=== PATIENT | male | born 1955 | race Caucasian/White ===

== ENCOUNTER → 2016-06-30 | Outpatient (CLI) | payer MEDICARE, OTHER ==
--- NOTE | 2016-06-30 13:54 | XR ---
EXAMINATION TYPE: XR chest 2V DATE OF EXAM: 06/30/2016 1:19 PM COMPARISON: Prior chest x-ray 12 August 2015 HISTORY: Pneumonia, abnormal physical exam, cough TECHNIQUE: Frontal and lateral views of the chest are obtained. FINDINGS: There is no focal air space opacity, pleural effusion, or pneumothorax seen. The cardiac silhouette size is within normal limits. There is a spinal curvature. There are prominent lung volum es. Minimal patchy density present at the left lung base. The osseous structures are intact. IMPRESSION: There may be some basilar atelectasis or scar. Follow-up as indicated. Chest CT may be o f benefit. Possible underlying COPD.
== END | disposition home or self-care (01) ==
LOC: RADXRMAIN 12:48
PROVIDERS: ATTEND Family Medicine
DX: J18.9 Pneumonia, unspecified organism (principal)
CPT/HCPCS: 71020

== ENCOUNTER → 2018-05-27 | Outpatient (CLI) | payer MEDICARE, OTHER ==
--- NOTE | 2018-05-27 11:13 | XR ---
EXAMINATION TYPE: XR chest 2V DATE OF EXAM: 05/27/2018 COMPARISON: Prior chest x-ray 06/30/[address] 07/08/2014 HISTORY: Dyspnea, abnormal chest x-ray TECHNIQUE: Frontal and lateral views of the chest are obtained. FINDINGS: Findings similar to prior exam. No pneumothorax or pleural effusion. Cardiomediastinal ruiz houette, pulmonary vascularity and timmy are stable. Prominent lung volumes compatible with underlying COPD, emphysema. The aorta is dense and tortuous. Question some minimal patchy basilar density, poss ible bronchiectatic changes. IMPRESSION: No significant interval change. Emphysema, possible mild bronchiectasis. There may be so me basilar scarring or atelectasis.
== END | disposition home or self-care (01) ==
LOC: RADXRMAIN 09:44
PROVIDERS: ATTEND Family Medicine
DX: J43.9 Emphysema, unspecified (principal)
CPT/HCPCS: 71046

== ENCOUNTER 2018-09-23 20:19 | Emergency (ER) | payer MEDICARE, OTHER ==
[2018-09-23] MEDS ORDERED: SODIUM CHLORIDE 0.9% 1,000 ML IV ONE (20:45)
[2018-09-23] MEDS ORDERED: SODIUM CHLORIDE 0.9% 500 ML 500 ML IV ONE (20:45)
--- NOTE | 2018-09-23 21:43 | ED ---
Altered Mental Status HPI - General Chief Complaint: Altered Mental Status Stated Complaint: Altered mental status Time Seen by Provider: 09/23/18 20:45 Source: family, EMS, RN notes reviewed, old records reviewed Mode of arrival: EMS Limitations: altered mental status - History of Present Illness Initial Comments: This is a 62-year-old male the ER for evaluation. Patient coming in for evaluation of altered mental status decreased responsiveness increasing anxiety. No recent travel history no sick contacts. No fevers cough or congestion or recent travel history no no pain. No recent change in medications. No drugs or alcohol abuse. Patient very emotional difficult historian secondary to inability to answer questions MD Complaint: altered mental status, confusion -: days(s) Severity: mild Consistency of Symptoms: waxing and waning Context: history of similar presentation Associated Symptoms: denies other symptoms - Related Data Home Medications Medication Instructions Recorded Confirmed Aspirin 81 mg PO DAILY 12/03/13 10/02/15 Clopidogrel [Plavix] 75 mg PO DAILY 12/03/13 10/02/15 Tamsulosin HCl [Flomax] 0.4 mg PO DAILY 12/04/13 10/02/15 Desvenlafaxine Succinate [Pristiq 100 mg PO DAILY 07/08/14 10/02/15 ER] ALPRAZolam [Xanax] 1 mg PO Q8H 08/31/14 10/02/15 Cyclobenzaprine [Flexeril] 10 mg PO HS PRN 04/13/15 10/02/15 Multivitamins, Thera [Multivitamin 1 tab PO DAILY 04/13/15 10/02/15 (formulary)] Budesonide/Formoterol Fumarate 2 puff INHALATION RT-BID 08/12/15 10/02/15 [Symbicort 160-4.5 Mcg Inhaler] Hydrocodone/Acetaminophen [[place] 1 tab PO Q6H PRN 08/12/15 10/02/15 7.5-325] carBAMazepine [TEGretol] 200 mg PO Q12H 09/22/15 10/02/15 Previous Rx's Medication Instructions Recorded Atorvastatin [Lipitor] 80 mg PO HS tab 07/10/14 Ipratropium-Albuterol Nebulize 3 ml INHALATION RT-QID #120 07/15/14 [Duoneb 0.5 mg-3 mg/3 ml Soln] ampul.neb Hydrocodone/Acetaminophen [[place] 1 each PO Q4HR PRN #15 tab 10/02/15 5-325] Metoclopramide HCl [Reglan] 10 mg PO Q6HR PRN #15 tablet 10/02/15 Allergies Allergy/AdvReac Type Severity Reaction Status Date / Time fentanyl AdvReac Vomiting Verified 09/23/18 20:34 Review of Systems ROS Statement: Those systems with pertinent positive or pertinent negative responses have been documented in the HPI. ROS Other: All systems not noted in ROS Statement are negative. Past Medical History Past Medical History: Asthma, Heart Failure, COPD, CVA/TIA, Hearing Disorder / Deafness, Hyperlipidemia, Hypertension, Seizure Disorder Additional Past Medical History / Comment(s): left side weakness since stroke in 2009, chronic sinusitis, sleep apnea, back pain History of Any Multi-Drug Resistant Organisms: None Reported Past Surgical History: Orthopedic Surgery Additional Past Surgical History / Comment(s): left ankle reconstruction, abd sx to remove fatty tumor Past Anesthesia/Blood Transfusion Reactions: No Reported Reaction Past Psychological History: Anxiety, Depression Smoking Status: Former smoker Past Alcohol Use History: None Reported Past Drug Use History: None Reported - Past Family History Mother Family Medical History: Coronary Artery Disease (CAD), Diabetes Mellitus Father Family Medical History: Congestive Heart Failure (CHF), Diabetes Mellitus Additional Family Medical History / Comment(s): heart cath with stents. brain tumor. General Exam Limitations: altered mental status General appearance: alert, in no apparent distress, anxious Head exam: Present: atraumatic, normocephalic, normal inspection Eye exam: Present: normal appearance, PERRL, EOMI. Absent: scleral icterus, conjunctival injection, periorbital swelling ENT exam: Present: normal exam, mucous membranes moist Neck exam: Present: normal inspection. Absent: tenderness, meningismus, lymphadenopathy Respiratory exam: Present: normal lung sounds bilaterally. Absent: respiratory distress, wheezes, rales, rhonchi, stridor Cardiovascular Exam: Present: regular rate, normal rhythm, normal heart sounds. Absent: systolic murmur, diastolic murmur, rubs, gallop, clicks GI/Abdominal exam: Present: soft, normal bowel sounds. Absent: distended, tenderness, guarding, rebound, rigid Extremities exam: Present: normal inspection, full ROM, normal capillary refill. Absent: tenderness, pedal edema, joint swelling, calf tenderness Back exam: Present: normal inspection Neurological exam: Present: alert, oriented X3, CN II-XII intact Psychiatric exam: Present: normal affect, normal mood Skin exam: Present: warm, dry, intact, normal color. Absent: rash Course Vital Signs 09/23/18 09/23/18 09/23/18 20:34 21:00 21:30 Temperature 98.5 F Pulse Rate 71 Respiratory 22 28 H Rate Blood Pressure 129/72 129/72 110/80 O2 Sat by Pulse 92 L 91 L Oximetry 09/23/18 09/23/18 09/23/18 22:00 22:04 22:14 Temperature Pulse Rate 85 81 82 Respiratory 18 20 Rate Blood Pressure 152/87 O2 Sat by Pulse 93 L Oximetry 09/23/18 09/23/18 09/23/18 22:30 23:00 23:30 Temperature Pulse Rate 85 82 77 Respiratory 16 16 15 Rate Blood Pressure 112/75 114/78 127/80 O2 Sat by Pulse 92 L 95 Oximetry 09/24/18 09/24/18 09/24/18 00:09 00:18 00:38 Temperature 97.4 F L Pulse Rate 76 76 78 Respiratory 16 Rate Blood Pressure 123/84 O2 Sat by Pulse 97 Oximetry Medical Decision Making - Medical Decision Making 62 male the ER for evaluation of significant anxiety, anxiety attack. Patient currently symptoms resolved with anxiolysis. Labwork is otherwise normal and patient can be discharged home - Lab Data Result diagrams: 09/23/18 21:26 09/23/18 22:19 Lab Results 09/23/18 09/23/18 09/23/18 Range/Units 21:26 21:43 21:43 WBC 7.3 (3.8-10.6) k/uL RBC 4.85 (4.30-5.90) m/uL Hgb 14.6 (13.0-17.5) gm/dL Hct 43.6 (39.0-53.0) % MCV 89.9 (80.0-100.0) fL MCH 30.0 (25.0-35.0) pg MCHC 33.4 (31.0-37.0) g/dL RDW 15.4 (11.5-15.5) % Plt Count 110 L (150-450) k/uL Neutrophils % 60 % Lymphocytes % 29 % Monocytes % 7 % Eosinophils % 1 % Basophils % 0 % Neutrophils # 4.4 (1.3-7.7) k/uL Lymphocytes # 2.1 (1.0-4.8) k/uL Monocytes # 0.5 (0-1.0) k/uL Eosinophils # 0.1 (0-0.7) k/uL Basophils # 0.0 (0-0.2) k/uL Hypochromasia Slight Poikilocytosis Slight PT (9.0-12.0) sec INR (<1.2) APTT (22.0-30.0) sec Sodium (137-145) mmol/L Potassium (3.5-5.1) mmol/L Chloride (98-107) mmol/L Carbon Dioxide (22-30) mmol/L Anion Gap mmol/L BUN (9-20) mg/dL Creatinine (0.66-1.25) mg/dL Est GFR (CKD-EPI)AfAm (>60 ml/min/1.73 sqM) Est GFR (CKD-EPI)NonAf (>60 ml/min/1.73 sqM) Glucose (74-99) mg/dL Calcium (8.4-10.2) mg/dL Phosphorus (2.5-4.5) mg/dL Magnesium (1.6-2.3) mg/dL Total Bilirubin (0.2-1.3) mg/dL AST (17-59) U/L ALT (21-72) U/L Alkaline Phosphatase (38-126) U/L Ammonia 17 (<30) umol/L Creatine Kinase (55-170) U/L Troponin I (0.000-0.034) ng/mL Total Protein (6.3-8.2) g/dL Albumin (3.5-5.0) g/dL Urine Color Yellow Urine Appearance Clear (Clear) Urine pH 5.5 (5.0-8.0) Ur Specific [place] 1.023 (1.001-1.035) Urine Protein Negative (Negative) Urine Glucose (UA) Negative (Negative) Urine Ketones Negative (Negative) Urine Blood Negative (Negative) Urine Nitrite Negative (Negative) Urine Bilirubin Negative (Negative) Urine Urobilinogen <2.0 (<2.0) mg/dL Ur Leukocyte Esterase Negative (Negative) Urine Opiates Screen Detected H (NotDetected) Ur Oxycodone Screen Not Detected (NotDetected) Urine Methadone Screen Not Detected (NotDetected) Ur Propoxyphene Screen Not Detected (NotDetected) Ur Barbiturates Screen Not Detected (NotDetected) U Tricyclic Antidepress Detected H (NotDetected) Ur Phencyclidine Scrn Not Detected (NotDetected) Ur Amphetamines Screen Not Detected (NotDetected) U Methamphetamines Scrn Not Detected (NotDetected) U Benzodiazepines Scrn Detected H (NotDetected) Urine Cocaine Screen Not Detected (NotDetected) U Marijuana (THC) Screen Detected H (NotDetected) 09/23/18 09/23/18 09/23/18 Range/Units 22:19 22:: WBC (3.8-10.6) k/uL RBC (4.30-5.90) m/uL Hgb (13.0-17.5) gm/dL Hct (39.0-53.0) % MCV (80.0-100.0) fL MCH (25.0-35.0) pg MCHC (31.0-37.0) g/dL RDW (11.5-15.5) % Plt Count (150-450) k/uL Neutrophils % % Lymphocytes % % Monocytes % % Eosinophils % % Basophils % % Neutrophils # (1.3-7.7) k/uL Lymphocytes # (1.0-4.8) k/uL Monocytes # (0-1.0) k/uL Eosinophils # (0-0.7) k/uL Basophils # (0-0.2) k/uL Hypochromasia Poikilocytosis PT 9.7 (9.0-12.0) sec INR 0.9 (<1.2) APTT 21.5 L (22.0-30.0) sec Sodium 139 (137-145) mmol/L Potassium 5.1 (3.5-5.1) mmol/L Chloride 109 H (98-107) mmol/L Carbon Dioxide 24 (22-30) mmol/L Anion Gap 6 mmol/L BUN 25 H (9-20) mg/dL Creatinine 0.85 (0.66-1.25) mg/dL Est GFR (CKD-EPI)AfAm >90 (>60 ml/min/1.73 sqM) Est GFR (CKD-EPI)NonAf >90 (>60 ml/min/1.73 sqM) Glucose 127 H (74-99) mg/dL Calcium 9.1 (8.4-10.2) mg/dL Phosphorus 4.7 H (2.5-4.5) mg/dL Magnesium 2.5 H (1.6-2.3) mg/dL Total Bilirubin 0.7 (0.2-1.3) mg/dL AST 67 H (17-59) U/L ALT 76 H (21-72) U/L Alkaline Phosphatase 87 (38-126) U/L Ammonia (<30) umol/L Creatine Kinase 122 (55-170) U/L Troponin I <0.012 (0.000-0.034) ng/mL Total Protein 7.2 (6.3-8.2) g/dL Albumin 4.2 (3.5-5.0) g/dL Urine Color Urine Appearance (Clear) Urine pH (5.0-8.0) Ur Specific [place] (1.001-1.035) Urine Protein (Negative) Urine Glucose (UA) (Negative) Urine Ketones (Negative) Urine Blood (Negative) Urine Nitrite (Negative) Urine Bilirubin (Negative) Urine Urobilinogen (<2.0) mg/dL Ur Leukocyte Esterase (Negative) Urine Opiates Screen (NotDetected) Ur Oxycodone Screen (NotDetected) Urine Methadone Screen (NotDetected) Ur Propoxyphene Screen (NotDetected) Ur Barbiturates Screen (NotDetected) U Tricyclic Antidepress (NotDetected) Ur Phencyclidine Scrn (NotDetected) Ur Amphetamines Screen (NotDetected) U Methamphetamines Scrn (NotDetected) U Benzodiazepines Scrn (NotDetected) Urine Cocaine Screen (NotDetected) U Marijuana (THC) Screen (NotDetected) - EKG Data -: EKG Interpreted by Me (EKG shows normal sinus rhythm rate of 87, ME 164, QRS 86, QTC is 435) - Radiology Data Radiology results: report reviewed (CT brain negative for acute disease chest x- rays negative), image reviewed Disposition Clinical Impression: Altered mental status, Anxiety reaction Disposition: HOME SELF-CARE Condition: Good Instructions (If sedation given, give patient instructions): Anxiety (ED) Is patient prescribed a controlled substance at d/c from ED?: No Referrals: Misael Rubalcava DO [Primary Care Provider] - 1-2 days
--- NOTE | 2018-09-23 21:48 | CT ---
EXAMINATION TYPE: CT brain wo con DATE OF EXAM: 09/23/2018 COMPARISON: 10/02/2015 HISTORY: Confusion. weakness CT DLP: 1135.4 mGycm Automated exposure control for dose reduction was used. FINDINGS: There is cerebral cortical atrophy. There is no mass effect nor midline shift. There is no sign of in tracranial hemorrhage. Calvarium is intact. There is mild mucosal thickening in the maxillary sinuses . IMPRESSION: NEGATIVE CT SCAN OF THE BRAIN. NO CHANGE. MILD SINUSITIS.
[2018-09-23 21:54] LABS: Basophils % (A) 0 %; Eosinophils # (A) 0.1 k/uL (0-0.7); Eosinophils % (A) 1 %; HCT 43.6 % (39.0-53.0); HGB 14.6 gm/dL (13.0-17.5); Hypochromasia Slight; Lymphocytes # (A) 2.1 k/uL (1.0-4.8); Lymphocytes % (A) 29 %; MCHC 33.4 g/dL (31.0-37.0); MCV 89.9 fL (80.0-100.0); Mean Platelet Volume 9.8; Monocytes # (A) 0.5 k/uL (0-1.0); Monocytes % (A) 7 %; Neutrophils # (A) 4.4 k/uL (1.3-7.7); Neutrophils % (A) 60 %; Platelet Count 110 k/uL (150-450); Poikilocytosis Slight; RBC 4.85 m/uL (4.30-5.90); RDW 15.4 % (11.5-15.5); WBC 7.3 k/uL (3.8-10.6)
[2018-09-23 21:56] LABS: Appearance,Urine Clear (Clear); Bilirubin,Urine Negative (Negative); Blood,Urine Negative (Negative); Color,Urine Yellow; Glucose,Urine (UA) Negative (Negative); Ketones,Urine Negative (Negative); Leukocyte Esterase,Urine Negative (Negative); Nitrite,Urine Negative (Negative); PH, Urine 5.5 (5.0-8.0); Protein,Urine Negative (Negative); Specific Gravity,Urine 1.023 (1.001-1.035); Urobilinogen,Urine <2.0 mg/dL (<2.0)
[2018-09-23] MEDS ORDERED: IPRATROPIUM-ALBUTEROL 3 ML NEB INHALATION STA (22:02)
[2018-09-23 22:07] LABS: Amphetamine Screen,Urine Not Detected (NotDetected); Barbiturate Screen,Urine Not Detected (NotDetected); Benzodiazepines Screen,Urine Detected (NotDetected); Cocaine Screen,Urine Not Detected (NotDetected); Methadone Screen, Urine Not Detected (NotDetected); Opiate Screen,Urine Detected (NotDetected); Oxycodone Screen, Urine Not Detected (NotDetected); Phencyclidine Screen,Urine Not Detected (NotDetected); Tricyclic Antidepressant,Urine Detected (NotDetected); Urn Cannabinoid Scrn Detected (NotDetected)
[2018-09-23] MEDS ORDERED: DIAZEPAM 5 MG/ML 2 ML INJ IVP STA (22:22)
[2018-09-23 22:40] LABS: African American GFR (CKD) >90 (>60 ml/min/1.73 sqM); Albumin 4.2 g/dL (3.5-5.0); Anion Gap 6 mmol/L; Calcium 9.1 mg/dL (8.4-10.2); Carbon Dioxide 24 mmol/L (22-30); Chloride 109 mmol/L (98-107); Sodium 139 mmol/L (137-145); Total Bilirubin 0.7 mg/dL (0.2-1.3); Total Protein 7.2 g/dL (6.3-8.2)
[2018-09-23 22:41] LABS: Blood Urea Nitrogen 25 mg/dL (9-20); Glucose 127 mg/dL (74-99); Magnesium 2.5 mg/dL (1.6-2.3); Phosphorus 4.7 mg/dL (2.5-4.5); Potassium 5.1 mmol/L (3.5-5.1)
[2018-09-23 22:42] LABS: ALT 76 U/L (21-72); AST 67 U/L (17-59); Alkaline Phosphatase 87 U/L (38-126); Creatine Kinase 122 U/L (55-170)
[2018-09-23 22:58] LABS: INR 0.9 (<1.2); Prothrombin Time 9.7 sec (9.0-12.0)
[2018-09-23 23:01] LABS: Partial Thromboplastin Time 21.5 sec (22.0-30.0)
--- NOTE | 2018-09-23 23:02 | XR ---
EXAM: XR Chest, 2 Views CLINICAL HISTORY: ITS.REASON XR Reason: Pain TECHNIQUE: Frontal and lateral views of the chest. COMPARISON: Chest radiograph on 09/14/2018 FINDINGS: Hardware: None. Lungs/pleura: Low lung volumes. Bibasilar opacities may represent atelectasis versus pneumonia. Pulmonary vasculature congestion versus crowding of bronchovascular markings. Heart/mediastinum: Mild enlargement of the cardiomediastinal silhouette may be accentuated by low lung volumes. Soft tissues: Unremarkable. Bones: No acute fracture. Upper abdomen: Normal. IMPRESSION: Low lung volumes. Bibasilar opacities may represent atelectasis versus pneumonia. Pulmonary vasculature congestion versus crowding of bronchovascular markings.
[2018-09-24] MEDS ORDERED: IPRATROPIUM-ALBUTEROL 3 ML NEB INHALATION STA
[2018-09-24 00:39] VITALS: BP 123/84; PULSE 78; RESP 16; TEMP 97.4
== END 2018-09-24 00:39 | disposition home or self-care (01) ==
LOC: EC 20:19
DX: F41.1 Generalized anxiety disorder (principal); R41.82 Altered mental status, unspecified; J44.9 Chronic obstructive pulmonary disease, unspecified; I11.0 Hypertensive heart disease with heart failure; I50.9 Heart failure, unspecified; G40.909 Epilepsy, unspecified, not intractable, without status epilepticus; H91.90 Unspecified hearing loss, unspecified ear; F32.9 Major depressive disorder, single episode, unspecified; Z87.891 Personal history of nicotine dependence; Z88.5 Allergy status to narcotic agent; Z79.02 Long term (current) use of antithrombotics/antiplatelets; Z79.51 Long term (current) use of inhaled steroids; Z79.82 Long term (current) use of aspirin; Z79.899 Other long term (current) drug therapy; Z86.73 Personal history of transient ischemic attack (TIA), and cerebral infarction without residual deficits
CPT/HCPCS: 36415; 94640 ×2; 93005; 80053; 82140; 82550; 83735; 84100; 84484; 85025; 85610; 85730; 81003; 80306; 71046; 70450; 99285; 96374; 96361; J3360

== ENCOUNTER → 2018-12-26 | Outpatient (CLI) | payer MEDICARE, OTHER ==
--- NOTE | 2018-12-26 12:43 | XR ---
EXAMINATION TYPE: XR chest 2V DATE OF EXAM: 12/26/2018 COMPARISON: 09/23/2018 TECHNIQUE: PA and lateral views submitted. HISTORY: Abnormal x-ray FINDINGS: Subsegmental changes at both lung bases. No evidence of interstitial edema or pneumothorax. No pleura l effusion. Upper atrophic and degenerative change of the spine. IMPRESSION: 1. Basilar atelectasis favored over pneumonia.
== END | disposition home or self-care (01) ==
LOC: RADXRMAIN 10:25
PROVIDERS: ATTEND Family Medicine
DX: J98.11 Atelectasis (principal)
CPT/HCPCS: 71046

== ENCOUNTER 2019-01-25 08:45 | Emergency (ER) | payer MEDICARE, OTHER ==
[2019-01-25 08:49] VITALS: TEMP 98.1
[2019-01-25] MEDS ORDERED: IPRATROPIUM 0.5 MG/2.5 ML NEBU INHALATION STA (09:14)
[2019-01-25] MEDS ORDERED: methylPREDNISolone SOD SUCCI 125 MG/2 ML VIAL IV STA (09:14)
[2019-01-25] MEDS ORDERED: ALBUTEROL NEBULIZED 2.5 MG/3 ML INHALATION STA (09:14)
--- NOTE | 2019-01-25 09:18 | ED ---
General Adult HPI - General Chief complaint: Shortness of Breath Stated complaint: CAROLYN Time Seen by Provider: 01/25/19 08:45 Source: patient, RN notes reviewed Mode of arrival: wheelchair Limitations: no limitations - History of Present Illness Initial comments: This is a 63-year-old male who presents to the emergency department complaining of difficulty breathing. Patient used to be a smoker. Patient states over the last few days he has been much more short of breath and wheezing. Patient states she's also been coughing and coughing up quite a bit of sputum. Patient denies fever or chills. Patient denies any chest pain. Patient denies any p alpitations. Patient denies any abdominal pain patient denies nausea vomiting diarrhea per patient denies headache patient denies numbness weakness. Patient denies any lightheadedness or dizziness. Patient denies leg swelling or calf tenderness - Related Data Home Medications Medication Instructions Recorded Confirmed Aspirin 81 mg PO HS 12/03/13 01/25/19 Clopidogrel [Plavix] 75 mg PO DAILY 12/03/13 01/25/19 Tamsulosin HCl [Flomax] 0.4 mg PO DAILY 12/04/13 01/25/19 Desvenlafaxine Succinate [Pristiq 50 mg PO DAILY 07/08/14 01/25/19 ER] Multivitamins, Thera [Multivitamin 1 tab PO DAILY 04/13/15 01/25/19 (formulary)] Budesonide/Formoterol Fumarate 2 puff INHALATION RT-BID 08/12/15 01/25/19 [Symbicort 160-4.5 Mcg Inhaler] carBAMazepine [TEGretol] 200 mg PO Q12H 09/22/15 01/25/19 ARIPiprazole [Abilify] 10 mg PO HS 01/25/19 01/25/19 Albuterol Nebulized [Ventolin 2.5 mg INHALATION RT-Q4H PRN 01/25/19 01/25/19 Nebulized] Atenolol [Tenormin] 50 mg PO BID 01/25/19 01/25/19 Fenofibrate [Lofibra] 160 mg PO DAILY 01/25/19 01/25/19 Finasteride [Proscar] 5 mg PO DAILY 01/25/19 01/25/19 Montelukast [Singulair] 10 mg PO HS 01/25/19 01/25/19 busPIRone HCL 15 mg PO BID 01/25/19 01/25/19 Previous Rx's Medication Instructions Recorded Atorvastatin [Lipitor] 80 mg PO HS tab 07/10/14 Azithromycin [Zithromax] 500 mg PO DAILY #3 tab 01/25/19 predniSONE 40 mg PO DAILY #8 tab 01/25/19 Allergies Allergy/AdvReac Type Severity Reaction Status Date / Time fentanyl AdvReac Vomiting Verified 01/25/19 09:20 Review of Systems ROS Statement: Those systems with pertinent positive or pertinent negative responses have been documented in the HPI. ROS Other: All systems not noted in ROS Statement are negative. Past Medical History Past Medical History: Asthma, Heart Failure, COPD, CVA/TIA, Hearing Disorder / Deafness, Hyperlipidemia, Hypertension, Seizure Disorder Additional Past Medical History / Comment(s): left side weakness since stroke in 2009, chronic sinusitis, sleep apnea, back pain History of Any Multi-Drug Resistant Organisms: None Reported Past Surgical History: Orthopedic Surgery Additional Past Surgical History / Comment(s): left ankle reconstruction, abd sx to remove fatty tumor Past Anesthesia/Blood Transfusion Reactions: No Reported Reaction Past Psychological History: Anxiety, Depression Smoking Status: Former smoker Past Alcohol Use History: None Reported Past Drug Use History: None Reported - Past Family History Mother Family Medical History: Coronary Artery Disease (CAD), Diabetes Mellitus Father Family Medical History: Congestive Heart Failure (CHF), Diabetes Mellitus Additional Family Medical History / Comment(s): heart cath with stents. brain tumor. General Exam - General Exam Comments Initial Comments: GENERAL: Patient is well-developed and well-nourished. Patient is nontoxic and well-hydrated and is in mild distress. ENT: Neck is soft and supple. No significant lymphadenopathy is noted. Oropharynx is clear. Moist mucous membranes. Neck has full range of motion without eliciting any pain. EYES: The sclera were anicteric and conjunctiva were pink and moist. Extraocular movements were intact and pupils were equal round and reactive to light. Eyelids were unremarkable. PULMONARY: Patient is diffuse after wheezing as well as crackles in the right base. CARDIOVASCULAR: There is a regular rate and rhythm without any murmurs gallops or rubs. ABDOMEN: Soft and nontender with normal bowel sounds. No palpable organomegaly was noted. There is no palpable pulsatile mass. SKIN: Skin is clear with no lesions or rashes and otherwise unremarkable. NEUROLOGIC: Patient is alert and oriented x3. Cranial nerves II through XII are grossly intact. Motor and sensory are also intact. Normal speech, volume and content. Symmetrical smile. MUSCULOSKELETAL: Normal extremities with adequate strength and full range of motion. No lower extremity swelling or edema. No calf tenderness. LYMPHATICS: No significant lymphadenopathy is noted PSYCHIATRIC: Normal psychiatric evaluation. Limitations: no limitations Course Vital Signs 01/25/19 01/25/19 01/25/19 08:47 09:43 10:05 Temperature 98.1 F Pulse Rate 77 64 68 Respiratory 18 Rate Blood Pressure 119/79 O2 Sat by Pulse 96 Oximetry 01/25/19 01/25/19 11:06 11:21 Temperature Pulse Rate 70 86 Respiratory Rate Blood Pressure O2 Sat by Pulse Oximetry Medical Decision Making - Medical Decision Making EKG shows sinus rhythm at 66 bpm IN interval is 172 QRS is 106 QT interval 390 QTC is 408. Patient's EKG shows no ST segment elevation or depression. Patient's chest x-ray shows no acute abnormalities. Patient continues to cough up some sputum so I started patient on Rocephin. Patient received 2 breathing treatments upon arrival he did have some improvement but still felt short of breath. Patient received steroids and then a third breathing treatment. Patient's third breathing treatment made him feel considerably better I listened to him at that time and he only occasionally had a slight faint wheeze. Patient felt comfortable going home. - Lab Data Result diagrams: 01/25/19 09:31 01/25/19 09:31 Lab Results 01/25/19 01/25/19 01/25/19 Range/Units 09: 09:31 09:31 WBC 6.1 (3.8-10.6) k/uL RBC 4.58 (4.30-5.90) m/uL Hgb 13.2 (13.0-17.5) gm/dL Hct 40.4 (39.0-53.0) % MCV 88.2 (80.0-100.0) fL MCH 28.8 (25.0-35.0) pg MCHC 32.7 (31.0-37.0) g/dL RDW 14.0 (11.5-15.5) % Plt Count 280 (150-450) k/uL Neutrophils % 52 % Lymphocytes % 31 % Monocytes % 8 % Eosinophils % 6 % Basophils % 1 % Neutrophils # 3.2 (1.3-7.7) k/uL Lymphocytes # 1.9 (1.0-4.8) k/uL Monocytes # 0.5 (0-1.0) k/uL Eosinophils # 0.4 (0-0.7) k/uL Basophils # 0.1 (0-0.2) k/uL PT 9.5 (9.0-12.0) sec INR 0.9 (<1.2) APTT 23.4 (22.0-30.0) sec D-Dimer 0.31 (<0.60) mg/L FEU Sodium 141 (137-145) mmol/L Potassium 4.2 (3.5-5.1) mmol/L Chloride 108 H (98-107) mmol/L Carbon Dioxide 27 (22-30) mmol/L Anion Gap 6 mmol/L BUN 18 (9-20) mg/dL Creatinine 0.79 (0.66-1.25) mg/dL Est GFR (CKD-EPI)AfAm >90 (>60 ml/min/1.73 sqM) Est GFR (CKD-EPI)NonAf >90 (>60 ml/min/1.73 sqM) Glucose 109 H (74-99) mg/dL Calcium 9.2 (8.4-10.2) mg/dL Magnesium 2.1 (1.6-2.3) mg/dL Total Bilirubin 0.4 (0.2-1.3) mg/dL AST 28 (17-59) U/L ALT 41 (21-72) U/L Alkaline Phosphatase 60 (38-126) U/L Troponin I (0.000-0.034) ng/mL NT-Pro-B Natriuret Pep pg/mL Total Protein 6.7 (6.3-8.2) g/dL Albumin 3.8 (3.5-5.0) g/dL 01/25/19 01/25/19 Range/Units 09:31 09:31 WBC (3.8-10.6) k/uL RBC (4.30-5.90) m/uL Hgb (13.0-17.5) gm/dL Hct (39.0-53.0) % MCV (80.0-100.0) fL MCH (25.0-35.0) pg MCHC (31.0-37.0) g/dL RDW (11.5-15.5) % Plt Count (150-450) k/uL Neutrophils % % Lymphocytes % % Monocytes % % Eosinophils % % Basophils % % Neutrophils # (1.3-7.7) k/uL Lymphocytes # (1.0-4.8) k/uL Monocytes # (0-1.0) k/uL Eosinophils # (0-0.7) k/uL Basophils # (0-0.2) k/uL PT (9.0-12.0) sec INR (<1.2) APTT (22.0-30.0) sec D-Dimer (<0.60) mg/L FEU Sodium (137-145) mmol/L Potassium (3.5-5.1) mmol/L Chloride (98-107) mmol/L Carbon Dioxide (22-30) mmol/L Anion Gap mmol/L BUN (9-20) mg/dL Creatinine (0.66-1.25) mg/dL Est GFR (CKD-EPI)AfAm (>60 ml/min/1.73 sqM) Est GFR (CKD-EPI)NonAf (>60 ml/min/1.73 sqM) Glucose (74-99) mg/dL Calcium (8.4-10.2) mg/dL Magnesium (1.6-2.3) mg/dL Total Bilirubin (0.2-1.3) mg/dL AST (17-59) U/L ALT (21-72) U/L Alkaline Phosphatase (38-126) U/L Troponin I <0.012 (0.000-0.034) ng/mL NT-Pro-B Natriuret Pep 27 pg/mL Total Protein (6.3-8.2) g/dL Albumin (3.5-5.0) g/dL Disposition Clinical Impression: Acute exacerbation of chronic obstructive pulmonary disease, Acute bronchitis Disposition: HOME SELF-CARE Condition: Good Instructions (If sedation given, give patient instructions): Acute Bronchitis (ED), COPD (Chronic Obstructive Pulmonary Disease) (ED) Prescriptions: predniSONE 40 mg PO DAILY #8 tab Azithromycin [Zithromax] 500 mg PO DAILY #3 tab Is patient prescribed a controlled substance at d/c from ED?: No Referrals: Misael Rubalcava DO [Primary Care Provider] - 1-2 days Time of Disposition: 11:48
[2019-01-25 09:47] LABS: Basophils # (A) 0.1 k/uL (0-0.2); Basophils % (A) 1 %; Eosinophils # (A) 0.4 k/uL (0-0.7); Eosinophils % (A) 6 %; HCT 40.4 % (39.0-53.0); HGB 13.2 gm/dL (13.0-17.5); Lymphocytes # (A) 1.9 k/uL (1.0-4.8); Lymphocytes % (A) 31 %; MCH 28.8 pg (25.0-35.0); MCHC 32.7 g/dL (31.0-37.0); MCV 88.2 fL (80.0-100.0); Mean Platelet Volume 7.3; Monocytes # (A) 0.5 k/uL (0-1.0); Monocytes % (A) 8 %; Neutrophils # (A) 3.2 k/uL (1.3-7.7); Neutrophils % (A) 52 %; Platelet Count 280 k/uL (150-450); RBC 4.58 m/uL (4.30-5.90); WBC 6.1 k/uL (3.8-10.6)
[2019-01-25 09:57] LABS: ALT 41 U/L (21-72); AST 28 U/L (17-59); African American GFR (CKD) >90 (>60 ml/min/1.73 sqM); Albumin 3.8 g/dL (3.5-5.0); Alkaline Phosphatase 60 U/L (38-126); Anion Gap 6 mmol/L; Blood Urea Nitrogen 18 mg/dL (9-20); Calcium 9.2 mg/dL (8.4-10.2); Carbon Dioxide 27 mmol/L (22-30); Chloride 108 mmol/L (98-107); Glucose 109 mg/dL (74-99); Magnesium 2.1 mg/dL (1.6-2.3); Potassium 4.2 mmol/L (3.5-5.1); Sodium 141 mmol/L (137-145); Total Bilirubin 0.4 mg/dL (0.2-1.3); Total Protein 6.7 g/dL (6.3-8.2)
[2019-01-25 10:00] LABS: D-Dimer 0.31 mg/L FEU (<0.60); INR 0.9 (<1.2); Partial Thromboplastin Time 23.4 sec (22.0-30.0); Prothrombin Time 9.5 sec (9.0-12.0)
--- NOTE | 2019-01-25 10:39 | XR ---
EXAMINATION TYPE: XR chest 2V DATE OF EXAM: 01/25/2019 COMPARISON: Prior chest x-ray 12/26/2018 HISTORY: Difficulty breathing, shortness of breath and cough TECHNIQUE: Frontal and lateral views of the chest are obtained. FINDINGS: No significant interval change. Some minimal subsegmental atelectatic change or scarring s uspected at the lung bases. No evident airspace disease, pneumothorax, or pleural effusion. Cardiac m ediastinal silhouette, pulmonary vascularity and timmy within normal limits. IMPRESSION: Suspect some minimal basilar atelectasis or scarring
[2019-01-25] MEDS ORDERED: IPRATROPIUM-ALBUTEROL 3 ML NEB INHALATION STA (10:42)
[2019-01-25] MEDS ORDERED: cefTRIAXone IN SWFI 1,000 MG/10 ML SYRINGE IVP STA (10:49)
[2019-01-25 11:47] VITALS: BP 118/70; PULSE 66; RESP 24
== END 2019-01-25 12:16 | disposition home or self-care (01) ==
LOC: EC 08:45
DX: J44.1 Chronic obstructive pulmonary disease with (acute) exacerbation (principal); J20.9 Acute bronchitis, unspecified; J45.909 Unspecified asthma, uncomplicated; I11.0 Hypertensive heart disease with heart failure; I50.9 Heart failure, unspecified; G40.909 Epilepsy, unspecified, not intractable, without status epilepticus; F41.9 Anxiety disorder, unspecified; F32.9 Major depressive disorder, single episode, unspecified; Z79.51 Long term (current) use of inhaled steroids; Z79.82 Long term (current) use of aspirin; Z79.02 Long term (current) use of antithrombotics/antiplatelets; Z79.899 Other long term (current) drug therapy; Z88.5 Allergy status to narcotic agent; Z87.891 Personal history of nicotine dependence; Z86.73 Personal history of transient ischemic attack (TIA), and cerebral infarction without residual deficits
CPT/HCPCS: 36415; 94640 ×2; 93005; 85379; 83880; 80053; 83735; 84484; 85025; 85610; 85730; 87040; 71046; 99285; 96374; 96375; J2930; J0696

== ENCOUNTER 2019-06-25 10:38 | Emergency (ER) | payer MEDICARE, OTHER ==
[2019-06-25 10:56] VITALS: TEMP 98.1
[2019-06-25] MEDS ORDERED: IPRATROPIUM 0.5 MG/2.5 ML NEBU INHALATION STA (11:13)
[2019-06-25] MEDS ORDERED: ALBUTEROL NEBULIZED 2.5 MG/3 ML INHALATION STA (11:13)
[2019-06-25] MEDS ORDERED: methylPREDNISolone SOD SUCCI 125 MG/2 ML VIAL IV STA (11:13)
[2019-06-25] MEDS ORDERED: HYDROmorphone 1 MG/ML 1 ML SYRINGE IVP STA (11:14)
--- NOTE | 2019-06-25 11:25 | ED ---
General Adult HPI - General Chief complaint: Shortness of Breath Stated complaint: poss pneumonia/cough Time Seen by Provider: 06/25/19 11:05 Source: patient, RN notes reviewed, old records reviewed Mode of arrival: ambulatory Limitations: no limitations - History of Present Illness Initial comments: 63-year-old male presenting for 2 days of cough and dyspnea. Patient has history of COPD with remote history of tobacco use. He states he's had cough p roductive of yellow sputum, moderate dyspnea. He's had subjective fever and chills which have responded to ibuprofen. He reports bilateral chest pain worse with cough. No central radiating chest pain. He is described myalgias and fatigue. He also reports nasal congestion. No lower extremity pain or swelling. No history DVT or PE. - Related Data Home Medications Medication Instructions Recorded Confirmed Aspirin 81 mg PO HS 12/03/13 01/25/19 Clopidogrel [Plavix] 75 mg PO DAILY 12/03/13 01/25/19 Tamsulosin HCl [Flomax] 0.4 mg PO DAILY 12/04/13 01/25/19 Desvenlafaxine Succinate [Pristiq 50 mg PO DAILY 07/08/14 01/25/19 ER] Multivitamins, Thera [Multivitamin 1 tab PO DAILY 04/13/15 01/25/19 (formulary)] Budesonide/Formoterol Fumarate 2 puff INHALATION RT-BID 08/12/15 01/25/19 [Symbicort 160-4.5 Mcg Inhaler] carBAMazepine [TEGretol] 200 mg PO Q12H 09/22/15 01/25/19 ARIPiprazole [Abilify] 10 mg PO HS 01/25/19 01/25/19 Albuterol Nebulized [Ventolin 2.5 mg INHALATION RT-Q4H PRN 01/25/19 01/25/19 Nebulized] Atenolol [Tenormin] 50 mg PO BID 01/25/19 01/25/19 Fenofibrate [Lofibra] 160 mg PO DAILY 01/25/19 01/25/19 Finasteride [Proscar] 5 mg PO DAILY 01/25/19 01/25/19 Montelukast [Singulair] 10 mg PO HS 01/25/19 01/25/19 busPIRone HCL 15 mg PO BID 01/25/19 01/25/19 Previous Rx's Medication Instructions Recorded Atorvastatin [Lipitor] 80 mg PO HS tab 07/10/14 Azithromycin [Zithromax] 500 mg PO DAILY #3 tab 01/25/19 predniSONE [Deltasone] 40 mg PO DAILY #8 tab 01/25/19 Azithromycin [Zithromax Z-pack] 0 mg PO DIRECTED #6 tab 06/25/19 predniSONE 50 mg PO DAILY #5 tab 06/25/19 Allergies Allergy/AdvReac Type Severity Reaction Status Date / Time fentanyl AdvReac Vomiting Verified 06/25/19 10:56 Review of Systems ROS Statement: Those systems with pertinent positive or pertinent negative responses have been documented in the HPI. ROS Other: All systems not noted in ROS Statement are negative. Past Medical History Past Medical History: Asthma, Heart Failure, COPD, CVA/TIA, Hearing Disorder / Deafness, Hyperlipidemia, Hypertension, Seizure Disorder Additional Past Medical History / Comment(s): left side weakness since stroke in 2009, chronic sinusitis, sleep apnea, back pain History of Any Multi-Drug Resistant Organisms: None Reported Past Surgical History: Orthopedic Surgery Additional Past Surgical History / Comment(s): left ankle reconstruction, abd sx to remove fatty tumor Past Anesthesia/Blood Transfusion Reactions: No Reported Reaction Past Psychological History: Anxiety, Depression Smoking Status: Former smoker Past Alcohol Use History: None Reported Past Drug Use History: None Reported - Past Family History Mother Family Medical History: Coronary Artery Disease (CAD), Diabetes Mellitus Father Family Medical History: Congestive Heart Failure (CHF), Diabetes Mellitus Additional Family Medical History / Comment(s): heart cath with stents. brain tumor. General Exam Limitations: no limitations General appearance: alert, in no apparent distress Head exam: Present: atraumatic, normocephalic Eye exam: Present: normal appearance, PERRL ENT exam: Present: normal exam Neck exam: Present: normal inspection. Absent: tenderness, meningismus Respiratory exam: Present: respiratory distress, wheezes, rhonchi, decreased breath sounds Cardiovascular Exam: Present: regular rate, normal rhythm GI/Abdominal exam: Present: soft. Absent: distended, tenderness, guarding Extremities exam: Present: normal inspection, normal capillary refill. Absent: pedal edema, calf tenderness Neurological exam: Present: alert, oriented X3, CN II-XII intact. Absent: motor sensory deficit Psychiatric exam: Present: normal affect, normal mood Skin exam: Present: warm, dry, intact. Absent: cyanosis, diaphoretic Course Vital Signs 06/25/19 06/25/19 06/25/19 10:53 11:08 11:30 Temperature 98.1 F Pulse Rate 73 75 Respiratory 18 24 Rate Blood Pressure 153/86 O2 Sat by Pulse 96 Oximetry 06/25/19 12:02 Temperature Pulse Rate 78 Respiratory Rate Blood Pressure O2 Sat by Pulse Oximetry EKG Findings - EKG Comments: EKG Findings:: EKG: Normal sinus rhythm, rate of 69, VT interval 166, QRS duration 98, QTC 45, no ST segment elevation. Medical Decision Making - Medical Decision Making 63-year-old male presenting for evaluation of cough and dyspnea, history of COPD. He has decreased air entry with end expiratory wheezing bilaterally and scattered rhonchi. Vitals are stable. Chest x-ray performed which shows some atelectasis, no focal consolidation, no pneumothorax., Given the atelectasis, history of COPD patient will be initiated on antibiotics and oral steroids. Laboratory studies are within normal limits including CBC, CMP, troponin, and venous blood gas. After albuterol, Atrovent, IV steroids is feeling much better. Eager for discharge. He will represent with worsening or changing symptoms. - Lab Data Result diagrams: 06/25/19 11:25 06/25/19 11:25 Lab Results 06/25/19 06/25/19 06/25/19 Range/Units 11:25 11:25 11:25 WBC 7.9 (3.8-10.6) k/uL RBC 4.84 (4.30-5.90) m/uL Hgb 13.8 (13.0-17.5) gm/dL Hct 41.1 (39.0-53.0) % MCV 85.0 (80.0-100.0) fL MCH 28.4 (25.0-35.0) pg MCHC 33.4 (31.0-37.0) g/dL RDW 14.3 (11.5-15.5) % Plt Count 327 (150-450) k/uL Neutrophils % 62 % Lymphocytes % 26 % Monocytes % 5 % Eosinophils % 5 % Basophils % 1 % Neutrophils # 4.9 (1.3-7.7) k/uL Lymphocytes # 2.0 (1.0-4.8) k/uL Monocytes # 0.4 (0-1.0) k/uL Eosinophils # 0.4 (0-0.7) k/uL Basophils # 0.1 (0-0.2) k/uL PT (9.0-12.0) sec INR (<1.2) APTT (22.0-30.0) sec VBG pH (7.31-7.41) VBG pCO2 (37-51) mmHg VBG HCO3 (24-28) mmol/L Sodium 140 (137-145) mmol/L Potassium 4.1 (3.5-5.1) mmol/L Chloride 106 (98-107) mmol/L Carbon Dioxide 26 (22-30) mmol/L Anion Gap 8 mmol/L BUN 13 (9-20) mg/dL Creatinine 0.82 (0.66-1.25) mg/dL Est GFR (CKD-EPI)AfAm >90 (>60 ml/min/1.73 sqM) Est GFR (CKD-EPI)NonAf >90 (>60 ml/min/1.73 sqM) Glucose 114 H (74-99) mg/dL Plasma Lactic Acid Keron 1.5 (0.7-2.0) mmol/L Calcium 9.3 (8.4-10.2) mg/dL Magnesium 2.1 (1.6-2.3) mg/dL Total Bilirubin 0.3 (0.2-1.3) mg/dL AST 32 (17-59) U/L ALT 39 (4-49) U/L Alkaline Phosphatase 85 (38-126) U/L Troponin I (0.000-0.034) ng/mL NT-Pro-B Natriuret Pep pg/mL Total Protein 7.0 (6.3-8.2) g/dL Albumin 4.1 (3.5-5.0) g/dL Influenza Type A RNA (Not Detectd) Influenza Type B (PCR) (Not Detectd) 06/25/19 06/25/19 06/25/19 Range/Units 11:25 11:25 11:25 WBC (3.8-10.6) k/uL RBC (4.30-5.90) m/uL Hgb (13.0-17.5) gm/dL Hct (39.0-53.0) % MCV (80.0-100.0) fL MCH (25.0-35.0) pg MCHC (31.0-37.0) g/dL RDW (11.5-15.5) % Plt Count (150-450) k/uL Neutrophils % % Lymphocytes % % Monocytes % % Eosinophils % % Basophils % % Neutrophils # (1.3-7.7) k/uL Lymphocytes # (1.0-4.8) k/uL Monocytes # (0-1.0) k/uL Eosinophils # (0-0.7) k/uL Basophils # (0-0.2) k/uL PT 9.5 (9.0-12.0) sec INR 0.9 (<1.2) APTT 22.2 (22.0-30.0) sec VBG pH (7.31-7.41) VBG pCO2 (37-51) mmHg VBG HCO3 (24-28) mmol/L Sodium (137-145) mmol/L Potassium (3.5-5.1) mmol/L Chloride (98-107) mmol/L Carbon Dioxide (22-30) mmol/L Anion Gap mmol/L BUN (9-20) mg/dL Creatinine (0.66-1.25) mg/dL Est GFR (CKD-EPI)AfAm (>60 ml/min/1.73 sqM) Est GFR (CKD-EPI)NonAf (>60 ml/min/1.73 sqM) Glucose (74-99) mg/dL Plasma Lactic Acid Keron (0.7-2.0) mmol/L Calcium (8.4-10.2) mg/dL Magnesium (1.6-2.3) mg/dL Total Bilirubin (0.2-1.3) mg/dL AST (17-59) U/L ALT (4-49) U/L Alkaline Phosphatase (38-126) U/L Troponin I <0.012 (0.000-0.034) ng/mL NT-Pro-B Natriuret Pep 45 pg/mL Total Protein (6.3-8.2) g/dL Albumin (3.5-5.0) g/dL Influenza Type A RNA (Not Detectd) Influenza Type B (PCR) (Not Detectd) 06/25/19 06/25/19 Range/Units 11:25 11:50 WBC (3.8-10.6) k/uL RBC (4.30-5.90) m/uL Hgb (13.0-17.5) gm/dL Hct (39.0-53.0) % MCV (80.0-100.0) fL MCH (25.0-35.0) pg MCHC (31.0-37.0) g/dL RDW (11.5-15.5) % Plt Count (150-450) k/uL Neutrophils % % Lymphocytes % % Monocytes % % Eosinophils % % Basophils % % Neutrophils # (1.3-7.7) k/uL Lymphocytes # (1.0-4.8) k/uL Monocytes # (0-1.0) k/uL Eosinophils # (0-0.7) k/uL Basophils # (0-0.2) k/uL PT (9.0-12.0) sec INR (<1.2) APTT (22.0-30.0) sec VBG pH 7.37 (7.31-7.41) VBG pCO2 45 (37-51) mmHg VBG HCO3 25 (24-28) mmol/L Sodium (137-145) mmol/L Potassium (3.5-5.1) mmol/L Chloride (98-107) mmol/L Carbon Dioxide (22-30) mmol/L Anion Gap mmol/L BUN (9-20) mg/dL Creatinine (0.66-1.25) mg/dL Est GFR (CKD-EPI)AfAm (>60 ml/min/1.73 sqM) Est GFR (CKD-EPI)NonAf (>60 ml/min/1.73 sqM) Glucose (74-99) mg/dL Plasma Lactic Acid Keron (0.7-2.0) mmol/L Calcium (8.4-10.2) mg/dL Magnesium (1.6-2.3) mg/dL Total Bilirubin (0.2-1.3) mg/dL AST (17-59) U/L ALT (4-49) U/L Alkaline Phosphatase (38-126) U/L Troponin I (0.000-0.034) ng/mL NT-Pro-B Natriuret Pep pg/mL Total Protein (6.3-8.2) g/dL Albumin (3.5-5.0) g/dL Influenza Type A RNA Not Detected (Not Detectd) Influenza Type B (PCR) Not Detected (Not Detectd) Disposition Clinical Impression: COPD with acute exacerbation Disposition: HOME SELF-CARE Condition: Good Instructions (If sedation given, give patient instructions): Chronic Bronchitis (ED), COPD (Chronic Obstructive Pulmonary Disease) (ED) Prescriptions: predniSONE 50 mg PO DAILY #5 tab Azithromycin [Zithromax Z-pack] 0 mg PO DIRECTED #6 tab Is patient prescribed a controlled substance at d/c from ED?: No Referrals: Vivienne Escalante MD [Primary Care Provider] - 1-2 days Time of Disposition: 12:39
[2019-06-25 11:42] LABS: Basophils # (A) 0.1 k/uL (0-0.2); Basophils % (A) 1 %; Eosinophils # (A) 0.4 k/uL (0-0.7); Eosinophils % (A) 5 %; HCT 41.1 % (39.0-53.0); HGB 13.8 gm/dL (13.0-17.5); Lymphocytes % (A) 26 %; MCH 28.4 pg (25.0-35.0); MCHC 33.4 g/dL (31.0-37.0); Mean Platelet Volume 7.6; Monocytes # (A) 0.4 k/uL (0-1.0); Monocytes % (A) 5 %; Neutrophils # (A) 4.9 k/uL (1.3-7.7); Neutrophils % (A) 62 %; Platelet Count 327 k/uL (150-450); RBC 4.84 m/uL (4.30-5.90); RDW 14.3 % (11.5-15.5); WBC 7.9 k/uL (3.8-10.6)
[2019-06-25 11:43] LABS: VBG PH 7.37 (7.31-7.41)
[2019-06-25 11:51] LABS: ALT 39 U/L (4-49); AST 32 U/L (17-59); African American GFR (CKD) >90 (>60 ml/min/1.73 sqM); Albumin 4.1 g/dL (3.5-5.0); Alkaline Phosphatase 85 U/L (38-126); Anion Gap 8 mmol/L; Blood Urea Nitrogen 13 mg/dL (9-20); Calcium 9.3 mg/dL (8.4-10.2); Carbon Dioxide 26 mmol/L (22-30); Chloride 106 mmol/L (98-107); Glucose 114 mg/dL (74-99); Magnesium 2.1 mg/dL (1.6-2.3); Non-African American GFR(CKD) >90 (>60 ml/min/1.73 sqM); Sodium 140 mmol/L (137-145); Total Bilirubin 0.3 mg/dL (0.2-1.3)
[2019-06-25 12:00] LABS: INR 0.9 (<1.2); Partial Thromboplastin Time 22.2 sec (22.0-30.0); Potassium 4.1 mmol/L (3.5-5.1); Prothrombin Time 9.5 sec (9.0-12.0)
--- NOTE | 2019-06-25 12:23 | XR ---
EXAMINATION TYPE: XR chest 2V DATE OF EXAM: 06/25/2019 HISTORY: difficulty breathing. REFERENCE: Previous study dated 01/25/2019. FINDINGS: There continues to be atelectatic change at the left lung base. This May BE chronic. The re mainder the lungs are clear. Pleural space are clear. Heart size upper limits of normal. IMPRESSION: ATELECTATIC CHANGE, LEFT LUNG BASE.
[2019-06-25 13:20] VITALS: BP 140/80; PULSE 85; RESP 18
== END 2019-06-25 12:50 | disposition home or self-care (01) ==
LOC: EC 10:38
DX: J44.1 Chronic obstructive pulmonary disease with (acute) exacerbation (principal); J98.11 Atelectasis; M79.10 Myalgia, unspecified site; I11.0 Hypertensive heart disease with heart failure; I50.9 Heart failure, unspecified; E78.5 Hyperlipidemia, unspecified; G40.909 Epilepsy, unspecified, not intractable, without status epilepticus; F32.9 Major depressive disorder, single episode, unspecified; F41.9 Anxiety disorder, unspecified; H91.90 Unspecified hearing loss, unspecified ear; Z87.891 Personal history of nicotine dependence; Z88.5 Allergy status to narcotic agent; Z79.02 Long term (current) use of antithrombotics/antiplatelets; Z79.51 Long term (current) use of inhaled steroids; Z79.82 Long term (current) use of aspirin; Z79.899 Other long term (current) drug therapy; Z86.73 Personal history of transient ischemic attack (TIA), and cerebral infarction without residual deficits; Z82.49 Family history of ischemic heart disease and other diseases of the circulatory system
CPT/HCPCS: 99285; 96374; 96375; 36415; 94640; 93005; 83880; 80053; 82803; 83605; 83735; 84484; 85025; 85610; 85730; 87040; 87502; 71046; J2930; J1170

== ENCOUNTER 2020-06-24 02:35 | Emergency (ER) | payer MEDICARE, OTHER ==
[2020-06-24 02:43] VITALS: RESP 18
--- NOTE | 2020-06-24 02:56 | ED ---
Fall HPI - General Chief Complaint: Fall Stated Complaint: Fall Time Seen by Provider: 06/24/20 02:44 Source: patient, EMS Mode of arrival: EMS Limitations: no limitations - History of Present Illness Initial Comments: This patient is 64-year-old man who presents to be evaluated for head injury. Patient states she believes she rolled out of bed and landed striking his brow against the floor. The patient complains of moderate frontal headache. He was concerned because he does take blood thinners. Patient states there is also some soreness in his neck. He denies any other injury. No neurologic symptoms. 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: no Place Fall Occurred: home Loss of Consciousness: unsure Prolonged Down Time?: no Symptoms Prior to Fall: none Location: head Severity: moderate Quality: dull Associated Symptoms: headache - Related Data Home Medications Medication Instructions Recorded Confirmed Aspirin 81 mg PO HS 12/03/13 01/25/19 Clopidogrel [Plavix] 75 mg PO DAILY 12/03/13 01/25/19 Tamsulosin HCl [Flomax] 0.4 mg PO DAILY 12/04/13 01/25/19 Desvenlafaxine Succinate [Pristiq 50 mg PO DAILY 07/08/14 01/25/19 ER] Multivitamins, Thera [Multivitamin 1 tab PO DAILY 04/13/15 01/25/19 (formulary)] Budesonide/Formoterol Fumarate 2 puff INHALATION RT-BID 08/12/15 01/25/19 [Symbicort 160-4.5 Mcg Inhaler] carBAMazepine [TEGretol] 200 mg PO Q12H 09/22/15 01/25/19 ARIPiprazole [Abilify] 10 mg PO HS 01/25/19 01/25/19 Albuterol Nebulized [Ventolin 2.5 mg INHALATION RT-Q4H PRN 01/25/19 01/25/19 Nebulized] Fenofibrate [Lofibra] 160 mg PO DAILY 01/25/19 01/25/19 Finasteride [Proscar] 5 mg PO DAILY 01/25/19 01/25/19 Montelukast [Singulair] 10 mg PO HS 01/25/19 01/25/19 atenoloL [Tenormin] 50 mg PO BID 01/25/19 01/25/19 busPIRone HCL 15 mg PO BID 01/25/19 01/25/19 Previous Rx's Medication Instructions Recorded Atorvastatin [Lipitor] 80 mg PO HS tab 07/10/14 Azithromycin [Zithromax] 500 mg PO DAILY #3 tab 01/25/19 predniSONE [Deltasone] 40 mg PO DAILY #8 tab 01/25/19 Azithromycin [Zithromax Z-pack] 0 mg PO DIRECTED #6 tab 06/25/19 predniSONE 50 mg PO DAILY #5 tab 06/25/19 Allergies Allergy/AdvReac Type Severity Reaction Status Date / Time fentanyl AdvReac Vomiting Verified 06/25/19 10:56 Review of Systems ROS Statement: Those systems with pertinent positive or pertinent negative responses have been documented in the HPI. ROS Other: All systems not noted in ROS Statement are negative. Constitutional: Denies: fever, chills Eyes: Denies: eye pain, vision change ENT: Denies: epistaxis Respiratory: Denies: cough, dyspnea Cardiovascular: Denies: chest pain, palpitations Gastrointestinal: Denies: abdominal pain, nausea, vomiting Musculoskeletal: Denies: back pain Skin: Denies: rash Neurological: Reports: headache. Denies: weakness, numbness, paresthesias, confusion Hematological/Lymphatic: Denies: easy bleeding Past Medical History Past Medical History: Asthma, Heart Failure, COPD, CVA/TIA, Hearing Disorder / Deafness, Hyperlipidemia, Hypertension, Seizure Disorder Additional Past Medical History / Comment(s): left side weakness since stroke in 2009, chronic sinusitis, sleep apnea, back pain History of Any Multi-Drug Resistant Organisms: None Reported Past Surgical History: Orthopedic Surgery Additional Past Surgical History / Comment(s): left ankle reconstruction, abd sx to remove fatty tumor Past Anesthesia/Blood Transfusion Reactions: No Reported Reaction Past Psychological History: Anxiety, Depression Smoking Status: Former smoker Past Alcohol Use History: None Reported Past Drug Use History: Marijuana - Past Family History Mother Family Medical History: Coronary Artery Disease (CAD), Diabetes Mellitus Father Family Medical History: Congestive Heart Failure (CHF), Diabetes Mellitus Additional Family Medical History / Comment(s): heart cath with stents. brain tumor. General Exam Limitations: no limitations General appearance: alert, in no apparent distress Eye exam: Present: normal appearance, PERRL, EOMI, other (Patient has superficial laceration to the brow, approximate 3 cm.). Absent: scleral icterus, conjunctival injection, periorbital swelling, periorbital tenderness ENT exam: Present: normal oropharynx Neck exam: Present: normal inspection, tenderness, full ROM. Absent: meningismus Respiratory exam: Present: normal lung sounds bilaterally. Absent: respiratory distress, wheezes, rales, rhonchi, stridor, chest wall tenderness Cardiovascular Exam: Present: regular rate, normal rhythm, normal heart sounds. Absent: systolic murmur, diastolic murmur, rubs, gallop GI/Abdominal exam: Present: soft. Absent: distended, tenderness, guarding, rebound, rigid, mass Extremities exam: Present: normal inspection, normal capillary refill. Absent: pedal edema, calf tenderness Back exam: Present: normal inspection. Absent: CVA tenderness (R), CVA tenderness (L), vertebral tenderness Neurological exam: Present: alert, oriented X3, CN II-XII intact. Absent: motor sensory deficit Skin exam: Present: warm, dry, intact, normal color. Absent: rash Course Vital Signs 06/24/20 06/24/20 02:38 04:02 Temperature 97.7 F 97.6 F Pulse Rate 67 60 Respiratory 18 18 Rate Blood Pressure 144/89 116/78 O2 Sat by Pulse 96 96 Oximetry Procedures - Laceration Laceration #1 Consent Obtained: verbal consent Indication: laceration Site: face Size (cm): 3 Description: linear Depth: simple, single layer Type of Sutures: other (Skin adhesive) Technique: other (Skin adhesive) Patient Tolerated Procedure: well, no complications Disposition Clinical Impression: Fall, Head injury, Facial laceration Disposition: HOME SELF-CARE Condition: Good Instructions (If sedation given, give patient instructions): Fall Prevention for Older Adults (ED), Head Injury (ED), Skin Adhesive Care (ED) Is patient prescribed a controlled substance at d/c from ED?: No Referrals: Vivienne Escalante MD [Primary Care Provider] - 1-2 days
--- NOTE | 2020-06-24 03:33 | CT ---
EXAM: CT Head Without Intravenous Contrast CLINICAL HISTORY: ITS.REASON CT Reason: fall injury TECHNIQUE: Axial computed tomography images of the head/brain without intravenous contrast. CTDI is 31.78 mGy and DLP is 766.85 mGy-cm. This CT exam was performed using one or more of the following dose reduction techniques: automated exposure control, adjustment of the mA and/or kV according to patient size, and/or use of iterative reconstruction technique. COMPARISON: CT 09/22/15. FINDINGS: Brain: No hemorrhage. No acute cortical infarct. No mass effect or midline shift. Age-related changes. Ventricles: Unremarkable. Bones/joints: Age-indeterminate nasal bone irregularity. Correlate with focal tenderness. Soft tissues: Unremarkable. Sinuses: Paranasal sinus disease. Mastoid air cells: Unremarkable as visualized. IMPRESSION: No acute intracranial process. EXAM: CT Cervical Spine Without Intravenous Contrast CLINICAL HISTORY: ITS.REASON CT Reason: fall injury TECHNIQUE: Axial computed tomography images of the cervical spine without intravenous contrast. CTDI is 31.78 mGy and DLP is 766.85 mGy-cm. This CT exam was performed using one or more of the following dose reduction techniques: automated exposure control, adjustment of the mA and/or kV according to patient size, and/or use of iterative reconstruction technique. COMPARISON: CT 09/22/15. FINDINGS: Artifacts: Motion artifact. Vertebrae: No acute fracture. Discs/spinal canal/neural foramina: Degenerative changes. Soft tissues: Unremarkable. Lung apices: Patchy atelectasis or pneumonitis. IMPRESSION: No acute fracture.
[2020-06-24 04:03] VITALS: BP 116/78; PULSE 60; TEMP 97.6
[2020-06-24] MEDS ORDERED: TOPICAL SKIN ADHESIVE 1 EACH AMP TOPICAL ONE (04:24)
[2020-06-24] MEDS ORDERED: Acetaminophen-Codeine 300-30mg TAB PO STA (04:37)
[2020-06-24] MEDS ORDERED: IBUPROFEN 600 MG TAB PO STA (04:38)
== END 2020-06-24 04:45 | disposition home or self-care (01) ==
LOC: EC 02:35
DX: S01.81XA Laceration without foreign body of other part of head, initial encounter (principal); J44.9 Chronic obstructive pulmonary disease, unspecified; I11.0 Hypertensive heart disease with heart failure; I50.9 Heart failure, unspecified; E78.5 Hyperlipidemia, unspecified; G40.909 Epilepsy, unspecified, not intractable, without status epilepticus; I69.354 Hemiplegia and hemiparesis following cerebral infarction affecting left non-dominant side; F41.9 Anxiety disorder, unspecified; F32.9 Major depressive disorder, single episode, unspecified; Z79.899 Other long term (current) drug therapy; Z79.02 Long term (current) use of antithrombotics/antiplatelets; Z79.82 Long term (current) use of aspirin; Z87.891 Personal history of nicotine dependence; Z88.5 Allergy status to narcotic agent; Z79.51 Long term (current) use of inhaled steroids; W06.XXXA Fall from bed, initial encounter; Y92.003 Bedroom of unspecified non-institutional (private) residence as the place of occurrence of the external cause
CPT/HCPCS: 12013; 70450; 72125; 99284

== ENCOUNTER 2020-12-25 10:42 | Inpatient (IN) | payer MEDICARE, OTHER ==
[2020-12-25] MEDS ORDERED: SODIUM CHLORIDE 0.9% 500 ML 500 ML IV STA (11:52)
--- NOTE | 2020-12-25 11:57 | ED ---
General Adult HPI - General Chief complaint: Syncope Stated complaint: Syncope Time Seen by Provider: 12/25/20 11:12 Source: patient, family, EMS Mode of arrival: EMS Limitations: no limitations - History of Present Illness Initial comments: 64-year-old male with a past medical history of heart failure, COPD, hyperlipidemia, hypertension, stroke currently on Plavix presents to the emergency room for a chief complaint of syncope. Patient states he has had chronic pain between his shoulder blades and his epigastric region for the past several months. It worsened today and patient had a syncopal episode. P patient's witnessed the fall. He fell straight backwards and hit his head and fell on his back. He has been complaining of this worsening back pain as well. He continues to have abdominal pain. states that his oxygen is usually 94% but it was in the 80s at home after this episode.Patient has no other complaints at this time including shortness of breath, chest pain, nausea or vomiting, headache, or visual changes. - Related Data Home Medications Medication Instructions Recorded Confirmed Aspirin 81 mg PO HS 12/03/13 12/25/20 Clopidogrel [Plavix] 75 mg PO DAILY 12/03/13 12/25/20 Tamsulosin HCl [Flomax] 0.4 mg PO DAILY 12/04/13 12/25/20 Budesonide/Formoterol Fumarate 2 puff INHALATION RT-BID 08/12/15 12/25/20 [Symbicort 160-4.5 Mcg Inhaler] Albuterol Nebulized [Ventolin 2.5 mg INHALATION RT-Q4H PRN 01/25/19 12/25/20 Nebulized] Montelukast [Singulair] 10 mg PO HS 01/25/19 12/25/20 atenoloL [Tenormin] 50 mg PO BID 01/25/19 12/25/20 Baclofen [Lioresal] 10 mg PO BID 12/25/20 12/25/20 DULoxetine HCL [Cymbalta] 60 mg PO BID 12/25/20 12/25/20 Omeprazole [PriLOSEC] 20 mg PO AC-BRKFST 12/25/20 12/25/20 clonazePAM [KlonoPIN] 0.5 mg PO TID 12/25/20 12/25/20 Previous Rx's Medication Instructions Recorded Atorvastatin [Lipitor] 80 mg PO HS tab 07/10/14 Allergies Allergy/AdvReac Type Severity Reaction Status Date / Time fentanyl AdvReac Vomiting Verified 12/25/20 13:49 Review of Systems ROS Statement: Those systems with pertinent positive or pertinent negative responses have been documented in the HPI. ROS Other: All systems not noted in ROS Statement are negative. Past Medical History Past Medical History: Asthma, Heart Failure, COPD, CVA/TIA, Hearing Disorder / Deafness, Hyperlipidemia, Hypertension, Seizure Disorder Additional Past Medical History / Comment(s): left side weakness since stroke in 2009, chronic sinusitis, sleep apnea, back pain History of Any Multi-Drug Resistant Organisms: None Reported Past Surgical History: Orthopedic Surgery Additional Past Surgical History / Comment(s): left ankle reconstruction, abd sx to remove fatty tumor Past Anesthesia/Blood Transfusion Reactions: No Reported Reaction Past Psychological History: Anxiety, Depression Smoking Status: Former smoker Past Alcohol Use History: None Reported Past Drug Use History: Marijuana - Past Family History Mother Family Medical History: Coronary Artery Disease (CAD), Diabetes Mellitus Father Family Medical History: Congestive Heart Failure (CHF), Diabetes Mellitus Additional Family Medical History / Comment(s): heart cath with stents. brain tumor. General Exam Limitations: no limitations General appearance: alert, in no apparent distress Head exam: Present: atraumatic Eye exam: Present: normal appearance, PERRL, EOMI. Absent: scleral icterus, conjunctival injection ENT exam: Present: normal exam, mucous membranes moist Neck exam: Present: normal inspection, full ROM. Absent: tenderness Respiratory exam: Present: normal lung sounds bilaterally. Absent: respiratory distress, wheezes, rales, rhonchi, stridor Cardiovascular Exam: Present: regular rate, normal rhythm, normal heart sounds. Absent: systolic murmur, diastolic murmur, rubs, gallop, clicks GI/Abdominal exam: Present: soft, normal bowel sounds. Absent: distended, tenderness, guarding, rebound, rigid Neurological exam: Present: alert Course Vital Signs 12/25/20 12/25/20 10:57 11:32 Temperature 97.6 F Pulse Rate 95 88 Respiratory 18 17 Rate Blood Pressure 129/99 136/97 O2 Sat by Pulse 95 95 Oximetry EKG Findings - EKG Comments: EKG Findings:: Normal sinus rhythm, ventricular rate 84, MN interval 152, QTC 427 Medical Decision Making - Medical Decision Making Patient presents for syncope and fall. Patient is on Plavix. Patient did hit his head and is having back and abdominal pain. HPI physical exam is documented. Vitals are stable. CBC and CMP are unremarkable. EKG is nonischemic and troponin is negative. CT brain and C-spine shows no acute fracture or dislocation in the cervical spine or acute intracranial hemorrhage, mass effect, or midline shift. CT chest abdomen pelvis shows no acute osseous fracture or evidence of organ injury. No significant abnormality of the aorta. Pt will be admitted for syncope. X-ray of his ankle showed a possible avulsion fracture and this was splinted as well. Cardiology and orthopedics consulted - Lab Data Result diagrams: 12/25/20 12:11 12/25/20 12:11 Lab Results 12/25/20 12/25/20 12/25/20 Range/Units 12:11 12:11 12:11 WBC 10.5 (3.8-10.6) k/uL RBC 5.54 (4.30-5.90) m/uL Hgb 15.6 (13.0-17.5) gm/dL Hct 46.7 (39.0-53.0) % MCV 84.3 (80.0-100.0) fL MCH 28.1 (25.0-35.0) pg MCHC 33.4 (31.0-37.0) g/dL RDW 15.7 H (11.5-15.5) % Plt Count 300 (150-450) k/uL MPV 7.7 Neutrophils % 66 % Lymphocytes % 21 % Monocytes % 5 % Eosinophils % 6 % Basophils % 1 % Neutrophils # 6.9 (1.3-7.7) k/uL Lymphocytes # 2.2 (1.0-4.8) k/uL Monocytes # 0.6 (0-1.0) k/uL Eosinophils # 0.7 (0-0.7) k/uL Basophils # 0.1 (0-0.2) k/uL PT 9.4 (9.0-12.0) sec INR 0.9 (<1.2) APTT 22.4 (22.0-30.0) sec Sodium (137-145) mmol/L Potassium (3.5-5.1) mmol/L Chloride (98-107) mmol/L Carbon Dioxide (22-30) mmol/L Anion Gap mmol/L BUN (9-20) mg/dL Creatinine (0.66-1.25) mg/dL Est GFR (CKD-EPI)AfAm (>60 ml/min/1.73 sqM) Est GFR (CKD-EPI)NonAf (>60 ml/min/1.73 sqM) Glucose (74-99) mg/dL Calcium (8.4-10.2) mg/dL Magnesium (1.6-2.3) mg/dL Total Bilirubin (0.2-1.3) mg/dL AST (17-59) U/L ALT (4-49) U/L Alkaline Phosphatase (38-126) U/L Troponin I (0.000-0.034) ng/mL Total Protein (6.3-8.2) g/dL Albumin (3.5-5.0) g/dL Urine Color Light Yellow Urine Appearance Clear (Clear) Urine pH 6.0 (5.0-8.0) Ur Specific [place] 1.013 (1.001-1.035) Urine Protein Negative (Negative) Urine Glucose (UA) Negative (Negative) Urine Ketones Negative (Negative) Urine Blood Negative (Negative) Urine Nitrite Negative (Negative) Urine Bilirubin Negative (Negative) Urine Urobilinogen <2.0 (<2.0) mg/dL Ur Leukocyte Esterase Negative (Negative) 12/25/20 12/25/20 Range/Units 12:11 12:11 WBC (3.8-10.6) k/uL RBC (4.30-5.90) m/uL Hgb (13.0-17.5) gm/dL Hct (39.0-53.0) % MCV (80.0-100.0) fL MCH (25.0-35.0) pg MCHC (31.0-37.0) g/dL RDW (11.5-15.5) % Plt Count (150-450) k/uL MPV Neutrophils % % Lymphocytes % % Monocytes % % Eosinophils % % Basophils % % Neutrophils # (1.3-7.7) k/uL Lymphocytes # (1.0-4.8) k/uL Monocytes # (0-1.0) k/uL Eosinophils # (0-0.7) k/uL Basophils # (0-0.2) k/uL PT (9.0-12.0) sec INR (<1.2) APTT (22.0-30.0) sec Sodium 142 (137-145) mmol/L Potassium 4.9 (3.5-5.1) mmol/L Chloride 107 (98-107) mmol/L Carbon Dioxide 28 (22-30) mmol/L Anion Gap 7 mmol/L BUN 13 (9-20) mg/dL Creatinine 0.68 (0.66-1.25) mg/dL Est GFR (CKD-EPI)AfAm >90 (>60 ml/min/1.73 sqM) Est GFR (CKD-EPI)NonAf >90 (>60 ml/min/1.73 sqM) Glucose 107 H (74-99) mg/dL Calcium 9.9 (8.4-10.2) mg/dL Magnesium 2.1 (1.6-2.3) mg/dL Total Bilirubin 0.4 (0.2-1.3) mg/dL AST 30 (17-59) U/L ALT 30 (4-49) U/L Alkaline Phosphatase 118 (38-126) U/L Troponin I <0.012 (0.000-0.034) ng/mL Total Protein 7.5 (6.3-8.2) g/dL Albumin 4.5 (3.5-5.0) g/dL Urine Color Urine Appearance (Clear) Urine pH (5.0-8.0) Ur Specific [place] (1.001-1.035) Urine Protein (Negative) Urine Glucose (UA) (Negative) Urine Ketones (Negative) Urine Blood (Negative) Urine Nitrite (Negative) Urine Bilirubin (Negative) Urine Urobilinogen (<2.0) mg/dL Ur Leukocyte Esterase (Negative) Disposition Clinical Impression: Syncope, Fall, Ankle fracture, right Disposition: ADMITTED IP TO THIS HOSP Is patient prescribed a controlled substance at d/c from ED?: No Referrals: Lauren Durbin MD [Primary Care Provider] - 1-2 days Time of Disposition: 14:26
[2020-12-25] MEDS ORDERED: MORPHINE SULFATE 4 MG/ML SYRINGE IVP STA (12:26)
[2020-12-25 12:47] LABS: Basophils # (A) 0.1 k/uL (0-0.2); Basophils % (A) 1 %; Eosinophils # (A) 0.7 k/uL (0-0.7); Eosinophils % (A) 6 %; HCT 46.7 % (39.0-53.0); HGB 15.6 gm/dL (13.0-17.5); Lymphocytes # (A) 2.2 k/uL (1.0-4.8); Lymphocytes % (A) 21 %; MCH 28.1 pg (25.0-35.0); MCHC 33.4 g/dL (31.0-37.0); MCV 84.3 fL (80.0-100.0); Mean Platelet Volume 7.7; Monocytes # (A) 0.6 k/uL (0-1.0); Monocytes % (A) 5 %; Neutrophils # (A) 6.9 k/uL (1.3-7.7); Neutrophils % (A) 66 %; Platelet Count 300 k/uL (150-450); RBC 5.54 m/uL (4.30-5.90); RDW 15.7 % (11.5-15.5); WBC 10.5 k/uL (3.8-10.6)
[2020-12-25 12:55] LABS: Appearance,Urine Clear (Clear); Bilirubin,Urine Negative (Negative); Blood,Urine Negative (Negative); Color,Urine Light Yellow; Glucose,Urine (UA) Negative (Negative); INR 0.9 (<1.2); Ketones,Urine Negative (Negative); Leukocyte Esterase,Urine Negative (Negative); Nitrite,Urine Negative (Negative); Partial Thromboplastin Time 22.4 sec (22.0-30.0); Protein,Urine Negative (Negative); Prothrombin Time 9.4 sec (9.0-12.0); Specific Gravity,Urine 1.013 (1.001-1.035); Urobilinogen,Urine <2.0 mg/dL (<2.0)
[2020-12-25 12:56] LABS: ALT 30 U/L (4-49); AST 30 U/L (17-59); African American GFR (CKD) >90 (>60 ml/min/1.73 sqM); Albumin 4.5 g/dL (3.5-5.0); Alkaline Phosphatase 118 U/L (38-126); Anion Gap 7 mmol/L; Blood Urea Nitrogen 13 mg/dL (9-20); Calcium 9.9 mg/dL (8.4-10.2); Carbon Dioxide 28 mmol/L (22-30); Chloride 107 mmol/L (98-107); Glucose 107 mg/dL (74-99); Magnesium 2.1 mg/dL (1.6-2.3); Non-African American GFR(CKD) >90 (>60 ml/min/1.73 sqM); Potassium 4.9 mmol/L (3.5-5.1); Sodium 142 mmol/L (137-145); Total Bilirubin 0.4 mg/dL (0.2-1.3); Total Protein 7.5 g/dL (6.3-8.2)
--- NOTE | 2020-12-25 13:06 | XR ---
EXAMINATION TYPE: XR ankle complete RT DATE OF EXAM: 12/25/2020 COMPARISON: NONE HISTORY: Pain FINDINGS: Three views of the ankle demonstrate the ankle mortise to be intact and symmetric. The joint spaces are preserved. Well-corticated densities adjacent to the medial malleolus suggestive of remote traum a. There appears to be a bony density in the lateral view suspicious for a avulsion fracture. IMPRESSION: 1. On the lateral view there is bony density seen posterior to the tibia which could be posttraumatic related to bulge and fracture. Recommend CT scan.
--- NOTE | 2020-12-25 14:01 | CT ---
EXAMINATION TYPE: CT brain cspine wo con DATE OF EXAM: 12/25/2020 COMPARISON: Exam 06/24/2020 HISTORY: Syncope, Fall. Upper back and abdominal pain CT DLP: 1411.6 mGycm Automated exposure control for dose reduction was used. TECHNIQUE: CT scan of the head and cervical spine are performed without contrast. FINDINGS: There is no acute intracranial hemorrhage, mass effect, or midline shift identified. The ventricles and sulci are within normal limits in size. The globes are intact and the visualized sin uses are remarkable for mucoperiosteal thickening greater in the right maxillary sinus than left. Cervical spine is visualized in its entirety from C1 through upper thoracic levels and demonstrates s atisfactory alignment without evidence of acute fracture or dislocation. Prevertebral soft tissue ap pears within normal limits. The C1-C2 articulation is unremarkable. Multilevel spondylosis, foramin al encroachment again noted, there is associated loss of disc height C3-4, C4-5, C5-6 and C6-7. IMPRESSION: 1. There is no acute fracture or dislocation evident in the cervical spine. 2. No acute intracranial hemorrhage, mass effect, or midline shift is seen.
--- NOTE | 2020-12-25 14:07 | CT ---
EXAMINATION TYPE: CT ChestAbdPelvis w con DATE OF EXAM: 12/25/2020 COMPARISON: CT chest 07/08/2014 HISTORY: Syncope. Fall. Upper back and abdominal pain CT DLP: 1378.9 mGycm Automated exposure control for dose reduction was used. CONTRAST: CT scan of the chest, abdomen and pelvis is performed without Oral Contrast and with IV Contrast, pat ient injected with 100 ml mL of Isovue 300. FINDINGS: LUNGS: The lungs are grossly clear, there is no concerning parenchymal mass or nodule identified. T here is no pleural effusion or pneumothorax seen. The tracheobronchial tree is patent. MEDIASTINUM: There are no greater than 1 cm hilar or mediastinal lymph nodes. No pericardial effusi on is seen. AORTA: No significant abnormality is seen. OTHER: No additional significant abnormality is seen. LIVER/GB: No significant abnormality is appreciated. PANCREAS: No significant abnormality is seen. SPLEEN: No significant abnormality is seen. ADRENALS: No significant abnormality is seen. KIDNEYS: No significant abnormality is seen. REPRODUCTIVE ORGANS: The prostate shows associated calcifications. BOWEL: No significant abnormality is seen. FREE AIR: No Free Air visible. ASCITES: None seen. RETROPERITONEAL ADENOPATHY: No retroperitoneal adenopathy is seen. LYMPH NODES: No greater than 1 cm abdominal or pelvic lymph nodes are appreciated. URINARY BLADDER: Thickened wall may be due to lack of distention or outlet obstruction. PELVIC ADENOPATHY: None visualized. OSSEOUS STRUCTURES: No significant abnormality is seen. IMPRESSION: No acute osseous fracture, abnormal fluid collection, or evidence of solid organ injury i n the thorax, abdomen, or pelvis.
[2020-12-25] MEDS ORDERED: NALOXONE 0.4 MG/ML 1 ML VIAL IV PRN (14:20)
[2020-12-25] MEDS ORDERED: NITROGLYCERIN SL TABS 0.4 MG TAB SUBLINGUAL PRN (14:23)
[2020-12-25] MEDS: SODIUM CHLORIDE 0.9% 1,000 ML IV SCH (15:13)
[2020-12-25] MEDS: atenoloL 50 MG TAB PO SCH (20:46)
[2020-12-25] MEDS: ASPIRIN 81 MG PO SCH (20:46)
[2020-12-25] MEDS: BACLOFEN 10 MG TAB PO SCH (20:46)
[2020-12-25] MEDS: DULoxetine HCL 60 MG CAPSULE.DR PO SCH (20:47)
[2020-12-25] MEDS: clonazePAM 0.5 MG TAB PO SCH (20:47)
[2020-12-25] MEDS: MONTELUKAST 10 MG TAB PO SCH (20:47)
[2020-12-25] MEDS: ATORVASTATIN 80 MG TAB PO SCH (20:47)
[2020-12-25] MEDS: ALBUTEROL NEBULIZED 2.5 MG/3 ML INHALATION PRN (21:20)
[2020-12-25] MEDS: SYMBICORT 160-4.5 MCG INHALER INHALATION SCH (21:20)
--- NOTE | 2020-12-25 22:16 | US ---
EXAMINATION TYPE: US carotid duplex BILAT DATE OF EXAM: 12/25/2020 COMPARISON: NONE CLINICAL HISTORY: syncope. EXAM MEASUREMENTS: RIGHT: Peak Systolic Velocity (PSV) cm/sec ----- Right CCA: 80.1 ----- Right ICA: 194.8 ----- Right ECA: 106.0 ICA/CCA ratio: 2.4 RIGHT: End Diastole cm/sec ----- Right CCA: 26.3 ----- Right ICA: 36.0 ----- Right ECA: 33.5 LEFT: Peak Systolic Velocity (PSV) cm/sec ----- Left CCA: 82.7 ----- Left ICA: 74.9 ----- Left ECA: 104.8 ICA/CCA ratio: 0.9 LEFT: End Diastole cm/sec ----- Left CCA: 32.2 ----- Left ICA: 19.3 ----- Left ECA: 28.9 VERTEBRALS (direction of flow): Right Vertebral: Antegrade Left Vertebral: Antegrade Rhythm: Normal No significant stenosis seen. Elevated right distal ICA due to tortuosity. IMPRESSION: There is antegrade flow in the vertebral arteries. The images and measurements suggest less than 15% stenosis in both internal carotid arteries. NASCET criteria was used in interpretation of this exam? Criteria for Assigning % of Stenosis / Diameter reduction (Estimation based on the indirect measurements of the internal carotid artery velocities (ICA PSV). 1. Normal (no stenosis)=ICA PSV < 125 cm/s: ratio < 2.0: ICA EDV<40 cm/s. 2. Less than 50% stenosis=ICA PSV < 125 cm/s: ratio < 2.0: ICA EDV<40 cm/s. 3. 50 to 69% stenosis=ICA PSV of 125 to 230 cm/s: ration 2.0 ? 4.0: ICA EDV 40-100 cm/s. 4. Greater than 70% stenosis to near occlusion= ICA PSV > 230 cm/s: ratio > 4.0: ICA EDV > 100 cm/s. 5. Near occlusion= ICA PSV velocities may be low or undetectable: variable ratio and ICA EDV. 6. Total occlusion=unable to detect flow.
[2020-12-25] MEDS ORDERED: ONDANSETRON 4 MG/2 ML VIAL IVP PRN (23:48)
[2020-12-25] MEDS: ACETAMINOPHEN TAB 325 MG TAB PO PRN (23:55)
[2020-12-26] MEDS: SODIUM CHLORIDE 0.9% 1,000 ML IV SCH ×2 (04:44→17:51)
[2020-12-26] MEDS: ALBUTEROL NEBULIZED 2.5 MG/3 ML INHALATION PRN ×4 (07:42→19:39)
[2020-12-26] MEDS: SYMBICORT 160-4.5 MCG INHALER INHALATION SCH ×2 (07:42→19:39)
[2020-12-26] MEDS: TAMSULOSIN 0.4 MG CAP.ER.24H PO SCH (08:03)
[2020-12-26] MEDS: DULoxetine HCL 60 MG CAPSULE.DR PO SCH ×2 (08:04→20:56)
[2020-12-26] MEDS: CLOPIDOGREL 75 MG TAB PO SCH (08:04)
[2020-12-26] MEDS: BACLOFEN 10 MG TAB PO SCH ×2 (08:04→20:56)
[2020-12-26] MEDS: PANTOPRAZOLE 40 MG TABLET PO SCH (08:04)
[2020-12-26] MEDS: clonazePAM 0.5 MG TAB PO SCH ×3 (08:04→20:57)
[2020-12-26] MEDS: ACETAMINOPHEN TAB 325 MG TAB PO PRN (08:04)
[2020-12-26] MEDS: atenoloL 50 MG TAB PO SCH ×2 (08:11→20:56)
[2020-12-26] MEDS ORDERED: HYDROcodone/APAP 5-325MG 1 EACH TAB PO PRN (11:10)
--- NOTE | 2020-12-26 11:21 | P.CNOR ---
History of Present Illness - [facility] Consult date: 12/26/20 Consult reason: other (Right ankle pain) History of present illness: Patient is a 64-year-old male who presented to [facility] emergency room yesterday after a syncopal episode which resulted in the fall. It was a witnessed fall by his , she states that he did hit his head during the fall. Patient is on blood thinners for previous stroke. His initial CT of the head and cervical spine demonstrated no acute bleeds or osseous abnormalities. Patient was admitted under internal medicine with multiple consults placed. During the fall, the patient states he did injure his right ankle. He has a history of chronic back pain also. Our orthopedic team was consult with regards to the right ankle. Patient was evaluated today at bedside, his was present. Patient is very hard of hearing but was able to answer all my questions adequately. He states he denies any previous surgery of the right ankle. He's had significant surgery to the left ankle from a previous fracture. He denies any pain of the left ankle at this time. Denies any acute pain of the hips or knees of the bilateral lower extremities. He denies any acute pain of the bilateral upper extremities. He denies any acute changes to his chronic pain involving the cervical, thoracic or lumbar spine. He denies any numbness or tingling of the bilateral upper or lower extremity is. He denies any acute loss of weakness in the bilateral upper or lower extremity is. He denies any. Home or genital numbness, he denies any loss of bowel or bladder control. He states most of the pain is on the lateral aspect of the right ankle. He is having no pain above the ankle including the fibula or tibia. He has no pain along the medial aspect of the ankle. He denies any acute pain. Review of Systems Constitutional: Reports as per HPI Past Medical History Past Medical History: Asthma, Heart Failure, COPD, CVA/TIA, Hearing Disorder / Deafness, Hyperlipidemia, Hypertension, Seizure Disorder Additional Past Medical History / Comment(s): left side weakness since stroke in 2009, chronic sinusitis, sleep apnea, back pain History of Any Multi-Drug Resistant Organisms: None Reported Past Surgical History: Orthopedic Surgery Additional Past Surgical History / Comment(s): left ankle reconstruction, abd sx to remove fatty tumor Past Anesthesia/Blood Transfusion Reactions: No Reported Reaction Smoking Status: Former smoker - Past Family History Mother Family Medical History: Coronary Artery Disease (CAD), Diabetes Mellitus Father Family Medical History: Congestive Heart Failure (CHF), Diabetes Mellitus Additional Family Medical History / Comment(s): heart cath with stents. brain tumor. Medications and Allergies Home Medications Medication Instructions Recorded Confirmed Type Aspirin 81 mg PO HS 12/03/13 12/25/20 History Clopidogrel [Plavix] 75 mg PO DAILY 12/03/13 12/25/20 History Tamsulosin HCl [Flomax] 0.4 mg PO DAILY 12/04/13 12/25/20 History Atorvastatin [Lipitor] 80 mg PO HS tab 07/10/14 12/25/20 Rx Budesonide/Formoterol Fumarate 2 puff INHALATION RT-BID 08/12/15 12/25/20 History [Symbicort 160-4.5 Mcg Inhaler] Albuterol Nebulized [Ventolin 2.5 mg INHALATION RT-Q4H PRN 01/25/19 12/25/20 History Nebulized] Montelukast [Singulair] 10 mg PO HS 01/25/19 12/25/20 History atenoloL [Tenormin] 50 mg PO BID 01/25/19 12/25/20 History Baclofen [Lioresal] 10 mg PO BID 12/25/20 12/25/20 History DULoxetine HCL [Cymbalta] 60 mg PO BID 12/25/20 12/25/20 History Omeprazole [PriLOSEC] 20 mg PO AC-BRKFST 12/25/20 12/25/20 History clonazePAM [KlonoPIN] 0.5 mg PO TID 12/25/20 12/25/20 History Allergies Allergy/AdvReac Type Severity Reaction Status Date / Time fentanyl AdvReac Vomiting Verified 12/25/20 13:49 Physical Examination Gen: AOx3, NAD VSS stable at this time Integument: No obvious skin changes are present throughout the right lower extremity, including the knee, lower leg, foot or ankle No obvious skin changes are appreciated throughout the cervical, thoracic or lumbar spine Palpation: Patient is nontender with palpation to the midline and paraspinal region of the cervical and thoracic spine. He has mild tenderness with palpation in the midline region of the lumbar/coccyx region with palpation. No obvious step-off is appreciated throughout the cervical, thoracic and lumbar spine. ROM: Range of motion in all major muscle groups in the bilateral upper and lower extremities are intact. There is some discomfort reproduced on the lateral aspect of the right ankle plantar flexion, dorsiflexion, inversion and eversion. Sensory Exam:[Senory exam to light touch is intact C5-T][Senosry exam to light touch is intact L2-S] Motor: 55 strength is appreciated in the bilateral upper extremities with shoulder abduction, forward elevation, elbow extension, elbow flexion, wrist extension, wrist flexion, finger intrinsics 55 strength is appreciated in the bilateral lower extremities with hip flexion, knee extension, knee flexion, plantar flexion, dorsiflexion, EHL, FHL Reflexes:[2/4 in all UE and L] Focused exam: Right lower extremity, no significant areas of soft tissue swelling or ecchymosis present. Patient is tender along the lateral ankle ligaments. Patient is nontender over the medial and lateral malleolus. Patient is nontender throughout the midfoot, forefoot and hindfoot with palpation. Compression test demonstrates no acute pain of the tibia/fibula. Logroll maneuver of the right lower extremity reproduces no pain. Logroll maneuver the left lower extremity reproduces no pain. Negative straight leg raise bilaterally Results - Labs Labs: Abnormal Lab Results - Last 24 Hours (Table) 12/25/20 12/25/20 Range/Units 12:11 12:11 RDW 15.7 H (11.5-15.5) % Glucose 107 H (74-99) mg/dL H & H 12/25/20 Range/Units 12:11 Hgb 15.6 (13.0-17.5) gm/dL Hct 46.7 (39.0-53.0) % Coagulation 12/25/20 Range/Units 12:11 INR 0.9 (<1.2) Result Diagrams: 12/25/20 12:11 12/25/20 12:11 - Diagnostic results Ankle/Foot x-ray: report reviewed, image reviewed (Images reviewed of the right ankle. There is a small avulsion off the medial aspect of the talus. No other acute fractures or dislocations are appreciated. The mortise joint remains intact.) Assessment and Plan Assessment: Right ankle pain Right ankle sprain Possible avulsion fracture medial tibial ligament Syncopal episode with fall, no loss of consciousness Chronic low back pain Multiple medical comorbidities Plan: I was able to discuss the case, including with physical exam findings imaging studies my attending Dr. Stallworth. The x-rays are demonstrating the possible avulsion fracture of the medial talus, the patient's symptoms correlate more with a lateral ankle sprain. A prescription for a Cam Walker boot was placed. Patient will be allowed to weight-bear as tolerated in boot at this time Recommend ice and elevation along with Tylenol as needed for discomfort. Tramadol 50 mg every 6 hours will be ordered for the acute pain Taking into consideration the patient's history of chronic low back pain, his exam along with symptomatic complaints does not suggest any acute changes at this time. Did discuss the patient he can follow up with Dr. Castro in the outpatient setting for further evaluation of his low back and discuss further treatment options. Discussed the patient if he notices any change in pain, including loss of bowel or bladder function, sana weakness or numbness or tingling in the lower extremities we will reevaluate GI and DVT prophylaxis per primary medical service Other medical specialty recommendations Discharge planning: Orthopedic standpoint, the patient is stable for discharge once he is fitted with a Cam Walker boot. Recommend follow-up with Dr. Stallworth in 2 weeks, recommend follow-up with Dr. Castro as needed for his low back
[2020-12-26] MEDS ORDERED: traMADol 50 MG TAB PO PRN (12:14)
[2020-12-26 13:04] LABS: Chol/HDL Ratio 4.87; LDL Cholesterol,Calculated 92.2 mg/dL (0.0-131.0); VLDL Calculation 54.8 mg/dL (5.00-40.00)
--- NOTE | 2020-12-26 13:41 | P.CRDCN ---
History of Present Illness History of present illness: HISTORY OF PRESENTING ILLNESS This is a pleasant 64-year-old with past medical history significant for Heart failure, COPD, reported atrial fibrillation, hyperlipidemia, hypertension, stroke, concern of seizures however not on antiepileptics, anxiety, ventral hernia and concern of syncope. Patient is not followed with a radiologist. Patient has been having issues for the past 10 years. He suffered a large stroke approximately 10 years ago which she states was related to A. fib. Most of history is supplied by as patient is somewhat confused currently. Patient had left-sided symptoms and has continued to have left-sided weakness however normally is able to walk and had gained some of his strength back. He had been doing fairly well however over the last 4-5 months he has been extremely fatigued and apparently sleeping approximately 20 hours. Patient states he does not feel tired however just dozes off to sleep. He denies any changes in his medications. His is a nurse and has been monitoring him. She states she has seen him have multiple episodes of seizures, grand mal seizures. Shaking and then post-sacral, confused afterwards. These have been happening more frequently. She noted patient have a grand mal seizure the other day and he had predominantly recovered from this however still somewhat confused and therefore patient was placed in a recliner. Apparently patient attempted to stand up and daughter have witnessed him walking and then suddenly lost consciousness and fell down. No prior history of syncope. He has been also having some unsteadiness and imbalance and even fell off the bed here in the hospital however appears he had been reaching for something and then was off balance and follow. He denies any chest pain or pressure. He does have some epigastric abdominal pain which is very reproducible on exam and may be related to her hernia. There is a reported diagnosis of atrial fibrillation however not on any anticoagulation. Patient's states he still is confused. She has been concerned of seizures in the past however she states doctors have told her this was mainly related to anxiety and therefore place patient on Klonopin. DIAGNOSTICS EKG reveals normal sinus rhythm, no significant ST or T-wave abnormalities. Chest, abdomen and pelvis CT shows no fracture, no evidence of solid organ injury. Laboratory reviewed, white blood cell count 10.5, hemoglobin 15.6, platelets 300, sodium 142, creatinine 0.68, AST 30, ALT 30, troponin less than 0.012 x 3, triglycerides 274, total cholesterol 185, LDL 92, HDL 38 Current cardiac medications include REVIEW OF SYSTEMS At the time of my exam: CONSTITUTIONAL: Denies fever or chills. CARDIOVASCULAR: Denies chest pain, shortness of breath, orthopnea, PND or palpitations. RESPIRATORY: Denies cough. GASTROINTESTINAL: Denies abdominal pain, diarrhea, constipation, nausea or vomiting. MUSCULOSKELETAL: Denies myalgias. NEUROLOGIC: Denies numbness, tingling +left weakness. ENDOCRINE: +fatigue, no weight change, polydipsia or polyurina. GENITOURINARY: Denies burning, hematuria or urgency with micturation. HEMATOLOGIC: Denies history of anemia or bleeding. PHYSICAL EXAMINATION Vital signs reviewed. CONSTITUTIONAL: No apparent distress, +left weakness HEENT: Head is normocephalic. Pupils are equal, round. Sclerae anicteric. Mucous membranes of the mouth are moist. No JVD. No carotid bruit. CHEST EXAMINATION: Lungs are clear to auscultation. No chest wall tenderness is noted on palpation or with deep breathing. HEART EXAMINATION: Regular rate and rhythm. S1, S2 heard. No murmurs, gallops or rub. ABDOMEN: Soft, nontender. Positive bowel sounds. EXTREMITIES: 2+ peripheral pulses, no lower extremity edema and no calf tenderness. NEUROLOGIC EXAMINATION: Patient is awake, alert and oriented x3. ASSESSMENT 1. Fall with apparent sudden loss of consciousness. Most likely syncope however has been having seizure-like activity 2. History of CVA 3. Reported history of atrial fibrillation however not on any anticoagulation 4. Reported history of congestive heart failure, currently appears euvolemic 5. Recent confusion, altered mental status 6. Seizure-like activity 7. COPD 8. Hypertension 9. Prolonged fatigue, family concerned of narcolepsy versus other PLAN Patient with many chronic issues including concern of prior stroke and possible recurrent TIAs, questionable seizures. Family does state patient has a history of atrial fibrillation however unclear why he is not on any anticoagulation. We will attempt to obtain records from [facility] where he had been treated previously. Continued telemetry. Patient with acute onset of loss of consciousness apparently witnessed by daughter with concern of syncope. Check 2-D echo. Recommended 30 day event monitor going home. Further neurologic workup per neurology, internal medicine. Past Medical History Past Medical History: Asthma, Heart Failure, COPD, CVA/TIA, Hearing Disorder / Deafness, Hyperlipidemia, Hypertension, Seizure Disorder Additional Past Medical History / Comment(s): left side weakness since stroke in 2009, chronic sinusitis, sleep apnea, back pain History of Any Multi-Drug Resistant Organisms: None Reported Past Surgical History: Orthopedic Surgery Additional Past Surgical History / Comment(s): left ankle reconstruction, abd sx to remove fatty tumor Past Anesthesia/Blood Transfusion Reactions: No Reported Reaction Smoking Status: Former smoker - Past Family History Mother Family Medical History: Coronary Artery Disease (CAD), Diabetes Mellitus Father Family Medical History: Congestive Heart Failure (CHF), Diabetes Mellitus Additional Family Medical History / Comment(s): heart cath with stents. brain tumor. Medications and Allergies Home Medications Medication Instructions Recorded Confirmed Type Aspirin 81 mg PO HS 12/03/13 12/25/20 History Clopidogrel [Plavix] 75 mg PO DAILY 12/03/13 12/25/20 History Tamsulosin HCl [Flomax] 0.4 mg PO DAILY 12/04/13 12/25/20 History Atorvastatin [Lipitor] 80 mg PO HS tab 07/10/14 12/25/20 Rx Budesonide/Formoterol Fumarate 2 puff INHALATION RT-BID 08/12/15 12/25/20 History [Symbicort 160-4.5 Mcg Inhaler] Albuterol Nebulized [Ventolin 2.5 mg INHALATION RT-Q4H PRN 01/25/19 12/25/20 History Nebulized] Montelukast [Singulair] 10 mg PO HS 01/25/19 12/25/20 History atenoloL [Tenormin] 50 mg PO BID 01/25/19 12/25/20 History Baclofen [Lioresal] 10 mg PO BID 12/25/20 12/25/20 History DULoxetine HCL [Cymbalta] 60 mg PO BID 12/25/20 12/25/20 History Omeprazole [PriLOSEC] 20 mg PO AC-BRKFST 12/25/20 12/25/20 History clonazePAM [KlonoPIN] 0.5 mg PO TID 12/25/20 12/25/20 History Allergies Allergy/AdvReac Type Severity Reaction Status Date / Time fentanyl AdvReac Vomiting Verified 12/25/20 13:49 Physical Exam Vitals: Vital Signs Temp Pulse Pulse Resp BP BP Pulse Ox 12/26/20 11:56 68 12/26/20 07:55 60 12/26/20 07:42 60 12/26/20 07:00 97.5 F L 60 16 138/87 95 12/26/20 02:00 97.4 F L 61 20 94 L 12/26/20 01:15 70 18 147/89 96 12/25/20 21:31 79 18 12/25/20 21:20 75 18 99 12/25/20 19:17 97.5 F L 77 18 167/92 94 L 12/25/20 17:59 98.1 F 16 176/82 97 12/25/20 17:55 98.1 F 16 97 12/25/20 16:30 18 12/25/20 15:16 80 18 144/97 96 Intake and Output 12/25/20 12/26/20 12/26/20 22:59 06:59 14:59 Intake Total 600 Balance 600 Intake: Intake, IV Titration 600 Amount Sodium Chloride 0.9% 1, 600 000 ml @ 75 mls/hr IV . [id number] [facility] Rx#:[id number] Other: Voiding Method Toilet Urinal # Voids 2 2 Weight 90.718 kg Results 12/25/20 12:11 12/25/20 12:11 Cardiac Enzymes 12/25/20 12/25/20 12/25/20 Range/Units 12:11 12:11 15:56 AST 30 (17-59) U/L Troponin I <0.012 <0.012 (0.000-0.034) ng/mL 12/25/20 Range/Units 19:05 AST (17-59) U/L Troponin I <0.012 (0.000-0.034) ng/mL Coagulation 12/25/20 Range/Units 12:11 PT 9.4 (9.0-12.0) sec APTT 22.4 (22.0-30.0) sec CBC 12/25/20 Range/Units 12:11 WBC 10.5 (3.8-10.6) k/uL RBC 5.54 (4.30-5.90) m/uL Hgb 15.6 (13.0-17.5) gm/dL Hct 46.7 (39.0-53.0) % Plt Count 300 (150-450) k/uL Comprehensive Metabolic Panel 12/25/20 Range/Units 12:11 Sodium 142 (137-145) mmol/L Potassium 4.9 (3.5-5.1) mmol/L Chloride 107 (98-107) mmol/L Carbon Dioxide 28 (22-30) mmol/L BUN 13 (9-20) mg/dL Creatinine 0.68 (0.66-1.25) mg/dL Glucose 107 H (74-99) mg/dL Calcium 9.9 (8.4-10.2) mg/dL AST 30 (17-59) U/L ALT 30 (4-49) U/L Alkaline Phosphatase 118 (38-126) U/L Total Protein 7.5 (6.3-8.2) g/dL Albumin 4.5 (3.5-5.0) g/dL Current Medications Generic Name Dose Route Start Last Admin Trade Name Freq PRN Reason Stop Dose Admin Acetaminophen 650 mg 12/25/20 23:48 12/26/20 08:04 Acetaminophen Tab 325 Mg Tab PO 650 mg Q6HR PRN Administration Fever and/ or Pain Hydrocodone Bitart/Acetaminophen 1 each 12/26/20 11:10 Hydrocodone/Apap 5-325mg 1 Each Tab PO Q8H PRN Pain Albuterol Sulfate 2.5 mg 12/25/20 16:09 12/26/20 11:56 Albuterol Nebulized 2.5 Mg/3 Ml INHALATION 2.5 mg RT-Q4H PRN Administration Shortness Of Breath Aspirin 81 mg 12/25/20 21:00 12/25/20 20:46 Aspirin 81 Mg PO 81 mg HS CASI Administration Atenolol 50 mg 12/25/20 21:00 12/26/20 08:11 Atenolol 50 Mg Tab PO 50 mg BID CASI Administration Atorvastatin Calcium 80 mg 12/25/20 21:00 12/25/20 20:47 Atorvastatin 80 Mg Tab PO 80 mg HS CASI Administration Baclofen 10 mg 12/25/20 21:00 12/26/20 08:04 Baclofen 10 Mg Tab PO 10 mg BID CASI Administration Budesonide/Formoterol Fumarate 2 puff 12/25/20 20:00 12/26/20 07:42 Symbicort 160-4.5 Mcg Inhaler INHALATION 2 puff RT-BID CASI Administration Clonazepam 0.5 mg 12/25/20 22:00 12/26/20 08:04 Clonazepam 0.5 Mg Tab PO 0.5 mg TID CASI Administration Clopidogrel Bisulfate 75 mg 12/26/20 09:00 12/26/20 08:04 Clopidogrel 75 Mg Tab PO 75 mg DAILY CASI Administration Duloxetine HCl 60 mg 12/25/20 21:00 12/26/20 08:04 Duloxetine Hcl 60 Mg Capsule.Dr PO 60 mg BID CASI Administration Sodium Chloride 1,000 mls @ 75 mls/hr 12/25/20 14:30 12/26/20 04:44 Saline 0.9% IV Not Given .[id number] CASI Montelukast Sodium 10 mg 12/25/20 21:00 12/25/20 20:47 Montelukast 10 Mg Tab PO 10 mg HS CASI Administration Naloxone HCl 0.2 mg 12/25/20 14:20 Naloxone 0.4 Mg/Ml 1 Ml Vial IV Q2M PRN Opioid Reversal Ondansetron HCl 4 mg 12/25/20 23:48 12/25/20 23:55 Ondansetron 4 Mg/2 Ml Vial IVP 4 mg Q6HR PRN Administration Nausea And Vomiting Pantoprazole Sodium 40 mg 12/26/20 07:30 12/26/20 08:04 Pantoprazole 40 Mg Tablet PO 40 mg AC-BRKFST [facility]I Administration Tamsulosin HCl 0.4 mg 12/26/20 09:00 12/26/20 08:03 Tamsulosin 0.4 Mg Cap.Er.24h PO 0.4 mg DAILY CASI Administration Intake and Output 12/25/20 12/26/20 12/26/20 22:59 06:59 14:59 Intake Total 600 Balance 600 Intake: Intake, IV Titration 600 Amount Sodium Chloride 0.9% 1, 600 000 ml @ 75 mls/hr IV . [id number] [facility] Rx#:[id number] Other: Voiding Method Toilet Urinal # Voids 2 2 Weight 90.718 kg 12/25/20 12:11 12/25/20 12:11
--- NOTE | 2020-12-26 14:45 | EEG ---
ELECTROENCEPHALOGRAM REPORT DATE OF SERVICE: 12/26/2020 PREAMBLE: This is a 64-year-old male with syncopal spell. He has history of seizures. This study is performed to evaluate for any epileptiform activity. EEG FINDINGS: This is a 21 channel routine EEG recording in a patient utilizing 10/20 international system with referential and bipolar montages. The background consists of well developed, well regulated, moderate voltage activity in mixed frequencies of 7 hertz theta with 8-9 hertz alpha activity. Background seems to be reactive to eye opening and closing. Photic driving response was not clearly seen. Some brief stage 2 sleep was seen with the presence of sleep spindles. No focal or generalized epileptiform activity was seen. IMPRESSION: This is a borderline abnormal EEG due to minimal background slowing. This may be considered nonspecific abnormality, although can be seen with mild encephalopathy or medication effect. No epileptiform activity was seen. MMODL / IJN: [id number] / MTDD
--- NOTE | 2020-12-26 17:47 | ECHOF ---
Referral Reason:syncope MEASUREMENTS -------- HEIGHT: 170.2 cm WEIGHT: 90.7 kg BP: 147/89 RVIDd: 3.3 cm (< 3.3) IVSd: 1.2 cm (0.6 - 1.1) LVIDd: 4.7 cm (3.9 - 5.3) LVPWd: 1.1 cm (0.6 - 1.1) IVSs: 1.9 cm LVIDs: 3.0 cm LVPWs: 1.8 cm LA Diam: 3.5 cm (2.7 - 3.8) LAESV Index (A-L): 29.32 ml/m Ao Diam: 2.9 cm (2.0 - 3.7) AV Cusp: 2.2 cm (1.5 - 2.6) MV EXCURSION: 16.594 mm (> 18.000) MV EF SLOPE: 172 mm/s (70 - 150) EPSS: 0.4 cm MV E Jem: 1.07 m/s MV DecT: 205 ms MV A Jem: 0.75 m/s MV E/A Ratio: 1.43 RAP: 5.00 mmHg RVSP: 29.38 mmHg FINDINGS -------- Sinus rhythm. This was a technically good study. The left ventricular size is normal. There is borderline concentric left ventricular hypertrophy. Overall left ventricular systolic function is normal with, an EF between 60 - 65 %. The right ventricle is mildly enlarged. LA is midly dilated 29-33ml/m2. The right atrium is normal in size. Interatrial and interventricular septum intact. The aortic valve is trileaflet, and appears structurally normal. No aortic stenosis or regurgitation. Mild mitral regurgitation is present. Mild tricuspid regurgitation present. Right ventricular systolic pressure is normal at < 35 mmHg. Trace/mild (physiologic) pulmonic regurgitation. The aortic root size is normal. Normal inferior vena cava with normal inspiratory collapse consistent with estimated right atrial pre ssure of 5 mmHg. There is no pericardial effusion. CONCLUSIONS -------- 1. The left ventricular size is normal. 2. There is borderline concentric left ventricular hypertrophy. 3. Overall left ventricular systolic function is normal with, an EF between 60 - 65 %. 4. The right ventricle is mildly enlarged. 5. LA is midly dilated 29-33ml/m2. 6. The aortic valve is trileaflet, and appears structurally normal. No aortic stenosis or regurgitati on. 7. Mild mitral regurgitation is present. 8. Mild tricuspid regurgitation present. 9. Trace/mild (physiologic) pulmonic regurgitation. 10. There is no pericardial effusion. [employer] TECHNICIAN: Leighann Mccall RDCS
[2020-12-26] MEDS: ASPIRIN 81 MG PO SCH (20:56)
[2020-12-26] MEDS: MONTELUKAST 10 MG TAB PO SCH (20:56)
[2020-12-26] MEDS: ATORVASTATIN 80 MG TAB PO SCH (20:57)
[2020-12-26] MEDS: LACOSAMIDE 50 MG TABLET PO SCH (20:57)
[2020-12-27] MEDS: SODIUM CHLORIDE 0.9% 1,000 ML IV SCH (06:18)
[2020-12-27] MEDS: SYMBICORT 160-4.5 MCG INHALER INHALATION SCH (07:48)
[2020-12-27 07:54] VITALS: BP 137/93; RESP 16; TEMP 97.4
[2020-12-27] MEDS: DULoxetine HCL 60 MG CAPSULE.DR PO SCH (08:02)
[2020-12-27] MEDS: CLOPIDOGREL 75 MG TAB PO SCH (08:02)
[2020-12-27] MEDS: TAMSULOSIN 0.4 MG CAP.ER.24H PO SCH (08:02)
[2020-12-27] MEDS: atenoloL 50 MG TAB PO SCH (08:02)
[2020-12-27] MEDS: LACOSAMIDE 50 MG TABLET PO SCH (08:03)
[2020-12-27] MEDS: BACLOFEN 10 MG TAB PO SCH (08:03)
[2020-12-27] MEDS: clonazePAM 0.5 MG TAB PO SCH (08:03)
[2020-12-27] MEDS: PANTOPRAZOLE 40 MG TABLET PO SCH (08:03)
--- NOTE | 2020-12-27 08:51 | P.DS ---
Providers Date of admission: 12/26/20 15:40 Expected date of discharge: 12/27/20 Attending physician: Lauren Durbin Consults: 12/25/20 14:22 Consult Physician Routine Consulting Provider: [facility] Consult Reason/Comments: syncope Do you want consulting provider notified?: Yes 12/25/20 14:23 Consult Physician Routine Consulting Provider: Marv Stallworth Consult Reason/Comments: ankle pain, poss avulsion fracture Do you want consulting provider notified?: Yes 12/25/20 14:55 Consult Physician Routine Consulting Provider: Moreno Torres Consult Reason/Comments: syncope, confusion Do you want consulting provider notified?: Yes Primary care physician: Lauren Durbin [facility] Course: This is a 54-year-old male with past medical history of hypertension, hyperlipid emia, history of CVA 11 years ago and several TIAs, history of seizure disorders but has been off Dilantin, COPD, benign prostatic hypertrophy, generalized anxiety disorder, recurrent depression hearing impairment, obstructive sleep apnea noncompliant with CPAP. The patient was feeling lightheaded dizzy and nauseated. He sat down and when his came back into the kitchen she found him on the floor with the loss of consciousness. Apparently daughter was in the home and saw him walking unsteady and fell. Patient landed on his back and hit his head. Patient does not remember falling. His states he was unconscious for about 3 minutes. She noted that his pulse ox was only 84% and placed him on her oxygen at 2 L nasal cannula. He did not lose control of bowel or urine, no biting his tongue. 12/26: Patient apparently fell out of bed around 1:30 in the morning. His is at the bedside resting and patient sat up and stood and fell towards the sink. He apparently did hit his head. Also after his morning eval was doing we left the patient's room this morning, patient reportedly had a seizure lasting 45 seconds that was witnessed by the patient's . Patient has been seen by neurology and he has EEG scheduled for today as well as echocardiogram, lipid panel. Carotid ultrasound revealed 15% internal carotid artery stenosis bilaterally. Patient has been afebrile, heart rate in the 60s and 70s, blood pressure 147/89, pulse ox 94% on room air. 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 Consult also in place with cardiology and orthopedics. 12/27: Patient's is at the bedside and states the patient this morning became dizzy and had another seizure. Dr. Tai has recommended the following: Vimpat 100 mg tablet, half tablet twice a day for 1 week and then go up to 100 mg twice a day. Patient to follow up with Dr. Cummings as outpatient for further management of his seizure disorder. Patient probably will need prolonged, perhaps 24-48 hours EEG for further evaluation of any interictal epileptiform activity. EEG here revealed mild encephalopathy. Patient has been afebrile, heart rate 61, blood pressure 137/93, pulse ox 90% on room air. Echocardiogram reveals EF of 60-65% with mild mitral regurgitation, mild tricuspid regurgitation. Patient has been seen by cardiology and patient may have history of atrial fibrillation but not on anticoagulation. Records from [facility] to be obtained. Event monitor placed prior to discharge. Patient has been seen by orthopedics and cam walker boot has been ordered and patient is wearing. Patient is allowed to weight-bear as tolerated in boot and plan for follow-up with Dr. Stallworth in 2 weeks. Orthopedics also recommended follow-up with Dr. Parham's in regarding chronic low back pain. Walker will be ordered for discharge. Patient will be discharged home today in stable condition. DISCHARGE DIAGNOSES 1. Syncope secondary to seizure. 2. Metaboloic encephalopathy 3. Right ankle fracture, avulsion fracture of the medial talus. 4. Hypertension. 5. Hyperlipidemia. 6. History of CVA, TIA. 7. COPD, stable without exacerbation. 8. Benign prostatic hypertrophy. 9. Abdominal pain secondary to ventral hernia. 10. Possible history of atrial fibrillation. DISCHARGE PLAN Home Impression and plan of care have been directed as dictated by the signing physician. Heidi Arndt nurse practitioner acting as scribe for signing physician. Patient Condition at Discharge: Good Plan - Discharge Summary Discharge Rx Participant: No New Discharge Prescriptions: New Lacosamide [Vimpat] 50 mg PO BID 3 Days #6 tab Lacosamide [Vimpat] 50 mg PO BID #60 tablet Continue Clopidogrel [Plavix] 75 mg PO DAILY Aspirin 81 mg PO HS Tamsulosin HCl [Flomax] 0.4 mg PO DAILY Atorvastatin [Lipitor] 80 mg PO HS tab Budesonide/Formoterol Fumarate [Symbicort 160-4.5 Mcg Inhaler] 2 puff INHALATION RT-BID Montelukast [Singulair] 10 mg PO HS atenoloL [Tenormin] 50 mg PO BID Albuterol Nebulized [Ventolin Nebulized] 2.5 mg INHALATION RT-Q4H PRN PRN Reason: Shortness Of Breath Baclofen [Lioresal] 10 mg PO BID DULoxetine HCL [Cymbalta] 60 mg PO BID clonazePAM [KlonoPIN] 0.5 mg PO TID Omeprazole [PriLOSEC] 20 mg PO AC-KFST Discharge Medication List Aspirin 81 mg PO HS 12/03/13 [History] Clopidogrel [Plavix] 75 mg PO DAILY 12/03/13 [History] Tamsulosin HCl [Flomax] 0.4 mg PO DAILY 12/04/13 [History] Atorvastatin [Lipitor] 80 mg PO HS tab 07/10/14 [Rx] Budesonide/Formoterol Fumarate [Symbicort 160-4.5 Mcg Inhaler] 2 puff INHALATION RT-BID 08/12/15 [History] Albuterol Nebulized [Ventolin Nebulized] 2.5 mg INHALATION RT-Q4H PRN 01/25/19 [History] Montelukast [Singulair] 10 mg PO HS 01/25/19 [History] atenoloL [Tenormin] 50 mg PO BID 01/25/19 [History] Baclofen [Lioresal] 10 mg PO BID 12/25/20 [History] DULoxetine HCL [Cymbalta] 60 mg PO BID 12/25/20 [History] [facility]epraz[facility] [[facility] 12/25[facility] [History] clonazePAM [KlonoPIN] 0.5 mg PO TID 12/25/20 [History] Lacosamide [Vimpat] 50 mg PO BID #60 tablet 12/27/20 [Rx] Lacosamide [Vimpat] 50 mg PO BID 3 Days #6 tab 12/27/20 [Rx] Follow up Appointment(s)/Referral(s): Lauren Durbin MD [Primary Care Provider] - 01/29/21 11:45 am Memo Salinas DO [STAFF PHYSICIAN] - 1 Week (OFFICE WILL CALL YOU WITH APPOINTMENT DATE AND TIME.) Oliverio Castro DO [Doctor of Osteopathic Medicine] - As Needed Marv Stallworth MD [STAFF PHYSICIAN] - 01/10/21 2:50 pm Patient Instructions/Handouts: Ankle Sprain (DC), Syncope (DC), Fall Prevention (DC)
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
--- NOTE | 2020-12-27 10:51 | P.PN ---
Subjective Progress Note Date: 12/27/20 HISTORY OF PRESENT ILLNESS: This is a 54-year-old male with past medical history of hypertension, hyperlipidemia, history of CVA 11 years ago and several TIAs, history of seizure disorders but has been off Dilantin, COPD, benign prostatic hypertrophy, generalized anxiety disorder, recurrent depression hearing impairment, obstructive sleep apnea noncompliant with CPAP. The patient was feeling lightheaded dizzy and nauseated. He sat down and when his came back into the kitchen she found him on the floor with the loss of consciousness. Apparently daughter was in the home and saw him walking unsteady and fell. Patient landed on his back and hit his head. Patient does not remember falling. His states he was unconscious for about 3 minutes. She noted that his p ulse ox was only 84% and placed him on her oxygen at 2 L nasal cannula. He did not lose control of bowel or urine, no biting his tongue. 12/26: Patient apparently fell out of bed around 1:30 in the morning. His is at the bedside resting and patient sat up and stood and fell towards the sink. He apparently did hit his head. Also after his morning eval was doing we left the patient's room this morning, patient reportedly had a seizure lasting 45 seconds that was witnessed by the patient's . Patient has been seen by neurology and he has EEG scheduled for today as well as echocardiogram, lipid panel. Carotid ultrasound revealed 15% internal carotid artery stenosis bilaterally. Patient has been afebrile, heart rate in the 60s and 70s, blood pressure 147/89, pulse ox 94% on room air. panel monitor is a sinus rhythm. Consult also in place with cardiology and orthopedics. REVIEW OF SYSTEMS: Constitutional: No documented fever, no chills, no night sweats. No weight change. No weakness, fatigue or lethargy. No daytime sleepiness. EENT: No headache. No blurred vision or double vision, no loss of vision. No loss of Hearing, no ringing in the ears, no dizziness. No nasal drainage or congestion. No epistaxis. No sore throat. Lungs: No shortness of breath, no cough, no sputum production. No wheezing. Reports dyspnea with activity. Cardiovascular: No chest pain, no lower extremity edema. No palpitations. No paroxysmal nocturnal dyspnea. No orthopnea. No lightheadedness or dizziness. No syncopal episodes. Abdominal: Reports epigastric abdominal pain. Reports nausea, no vomiting. No diarrhea. No constipation. No bloody or tarry stools reports loss of appetite. Genitourinary: No dysuria, increased frequency, urgency. No urinary retention. Musculoskeletal: No myalgias. No muscle weakness, no gait dysfunction, no frequent falls. No back pain. No neck pain. Integumentary: No wounds, no lesions. No rash or pruritus. No unusual bruising. No change in hair or nails. Neurologic: No aphasia. No facial droop. No change in mentation. No head injury. No headache. No paralysis. No paresthesia. Psychiatric: No depression. No anxiety. No mood swings. Endocrine: No abnormal blood sugars. No weight change. PHYSICAL EXAMINATION: General: This is a 64-year-old male patient. He is resting on the ER stretcher and appears very comfortable and in no acute distress. HEENT: Head is atraumatic, normocephalic, pupils were equal round reactive to light and recommendation, extraocular muscle movement were intact, sclera nonicteric, conjunctivae were pale, mucous membranes of the mouth are somewhat dry. Neck: Supple, no JVP, normal carotid upstroke bilaterally, no lymphadenopathy. Chest: Decreased breath sounds at the bases, few rhonchi, no extremity wheezes, no chest wall tenderness, no intercostal retractions. Heart: First heart sound is normal, second heart sounds normal Abdomen: Soft, nontender, nondistended, positive bowel sounds. Extremities: There is no edema no calf tenderness DP +2 bilaterally. Neurologic examination: Patient is awake alert and oriented ?-3, cranial nerves II-12 appear grossly intact, muscle power were 5 out of 5 in upper extremities and 5 out of 5 in bilateral lower extremities, deep tendon reflexes normal bilaterally. ASSESSMENT AND PLAN: 1. Syncope rule out seizure. Consult Dr. Torres 2. Metaboloic encephalopathy 3. Right ankle fracture. Consult Dr. Stallworth, splint to the left lower extremity. 4. Hypertension. 5. Hyperlipidemia. 6. History of CVA, TIA. Continue Plavix 75 mg oral daily, Lipitor 7. COPD, stable without exacerbation. 8. Benign prostatic hypertrophy. Continue Flomax 0.4 mg daily. 9. Abdominal pain secondary to ventral hernia. 10. GI prophylaxis. 11. DVT prophylaxis. CODE STATUS: Full code DISCHARGE PLAN Home Impression and plan of care have been directed as dictated by the signing physician. Heidi Arndt nurse practitioner acting as scribe for signing physician. Objective - Vital Signs Vital signs: Vital Signs Temp 97.4 F L 12/27/20 07:00 Pulse 61 12/27/20 08:00 Resp 16 12/27/20 08:00 BP 137/93 12/27/20 07:00 Pulse Ox 98 12/27/20 07:00 Intake & Output 12/26/20 12/27/20 12/27/20 18:59 06:59 18:59 Other: Voiding Method Toilet Toilet Toilet Urinal Urinal Urinal # Voids 2 4 - Labs CBC & Chem 7: 12/25/20 12:11 12/25/20 12:11 Labs: Abnormal Lab Results - Last 24 Hours (Table) 12/25/20 Range/Units 12:11 Triglycerides 274.0 H (0.0-149.0) mg/dL VLDL Cholesterol, Calc 54.80 H (5.00-40.00) mg/dL HDL Cholesterol 38.0 L (40.0-60.0) mg/dL
--- NOTE | 2020-12-27 10:52 | P.PN ---
Subjective Progress Note Date: 12/27/20 HISTORY OF PRESENT ILLNESS: This is a pleasant 64-year-old with past medical history significant for Heart failure, COPD, reported atrial fibrillation, hyperlipidemia, hypertension, stroke, concern of seizures however not on antiepileptics, anxiety, ventral hernia and concern of syncope. 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 Patient has been having issues for the past 10 years. He suffered a large stroke approximately 10 years ago which she states was related to A. fib. Most of history is supplied by as patient is somewhat confused currently. Patient had left-sided symptoms and has continued to have left-sided weakness however normally is able to walk and had gained some of his strength back. He had been doing fairly well however over the last 4-5 months he has been extremely fatigued and apparently sleeping approximately 20 hours. Patient states he does not feel tired however just dozes off to sleep. He denies any changes in his medications. His is a nurse and has been monitoring him. She states she has seen him have multiple episodes of seizures, grand mal seizures. Shaking and then post-sacral, confused afterwards. These have been happening more frequently. She noted patient have a grand mal seizure the other day and he had predominantly recovered from this however still somewhat confused and therefore patient was placed in a recliner. Apparently patient attempted to stand up and daughter have witnessed him walking and then suddenly lost consciousness and fell down. No prior history of syncope. He has been also having some unsteadiness and imbalance and even fell off the bed here in the hospital however appears he had been reaching for something and then was off balance and follow. He denies any chest pain or pressure. He does have some epigastric abdominal pain which is very reproducible on exam and may be related to her hernia. There is a reported diagnosis of atrial fibrillation however not on any anticoagulation. Patient's states he still is confused. She has been concerned of seizures in the past however she states doctors have told her this was mainly related to anxiety and therefore place patient on Klonopin. 12/27/2020 Patient examined this morning at the bedside. Patient denies chest pain or pressure. Denies shortness of breath. Telemetry reveals sinus mechanism. Blood pressure 137/93. Patient is on room air with oxygen saturations greater than 92%. He is afebrile. PHYSICAL EXAM: VITAL SIGNS: Reviewed. GENERAL: Well-developed in no acute distress. NECK: Supple. No JVD or thyromegaly LUNGS: Respirations even and unlabored. Lungs essentially clear to auscultation bilaterally. HEART: Regular rate and rhythm. S1 and S2 heard. EXTREMITIES: No clubbing or cyanosis. Peripheral pulses intact. No lower extremity edema ASSESSMENT: 1. Fall with apparent sudden loss of consciousness. Most likely syncope however has been having seizure-like activity 2. History of CVA 3. Reported history of atrial fibrillation however not on any anticoagulation 4. Reported history of congestive heart failure, currently appears euvolemic 5. Recent confusion, altered mental status 6. Seizure-like activity 7. COPD 8. Hypertension 9. Prolonged fatigue, family concerned of narcolepsy versus other PLAN: Patients spouse at the bedside. She is confident that the patient was told he had atrial fibrillation when he had his CVA at [facility]. We are unable to obtain records from [place] as this was over 10 years ago. The patient also gives history of falling 3-4 times a year. The states the patient is not steady on his feet. She also reports he recently fell out of bed and hit his head on the nightstand. Given the patients unsteady gait and history of falls, we will hold on starting any anticoagulation at this time. The patient will be discharged home with a 30 day event monitor and follow up outpatient with Dr. Salinas. Nurse practitioner note has been reviewed by physician. Signing provider agrees with the documented findings, assessment, and plan of care. Objective - Vital Signs Vital signs: Vital Signs Temp 97.4 F L 12/27/20 07:00 Pulse 61 12/27/20 08:00 Resp 16 12/27/20 08:00 BP 137/93 12/27/20 07:00 Pulse Ox 98 12/27/20 07:00 Intake & Output 12/26/20 12/27/20 12/27/20 18:59 06:59 18:59 Other: Voiding Method Toilet Toilet Toilet Urinal Urinal Urinal # Voids 2 4 - Labs CBC & Chem 7: 12/25/20 12:11 12/25/20 12:11 Labs: Abnormal Lab Results - Last 24 Hours (Table) 12/25/20 Range/Units 12:11 Triglycerides 274.0 H (0.0-149.0) mg/dL VLDL Cholesterol, Calc 54.80 H (5.00-40.00) mg/dL HDL Cholesterol 38.0 L (40.0-60.0) mg/dL
[2020-12-27] MEDS: ALBUTEROL NEBULIZED 2.5 MG/3 ML INHALATION PRN (11:33)
[2020-12-27 13:40] VITALS: PULSE 61
--- NOTE | 2020-12-29 00:39 | P.PN ---
Subjective Progress Note Date: 12/27/20 Patient was seen for a follow-up. Patient is laying comfortably in the bed. Patient's was also present. No further seizures. Patient has been noting slight dizziness from Vimpat, otherwise tolerating it well. Objective - Vital Signs Vital signs: Vital Signs Temp 97.4 F L 12/27/20 07:00 Pulse 61 12/27/20 13:38 Resp 16 12/27/20 13:38 BP 137/93 12/27/20 07:00 Pulse Ox 98 12/27/20 07:00 - Exam Patient's mental status, speech and language functions are normal. Detailed testing deferred. - Labs CBC & Chem 7: 12/25/20 12:11 12/25/20 12:11 Assessment and Plan Assessment: * Probable seizure disorder, currently not being treated. Seizures appears epileptic based upon the semiology, although nonepileptic events also in the differential. * Reported history of CVA involving the left side of the body, with very mild residual deficits. * Hypertension * Hyperlipidemia * Obesity * Hard of hearing * Right ankle fracture due to fall Plan: * Continue Vimpat 50 mg twice a day. Patient recommended not to increase the dose, unless dizziness has resolved. Patient has previously failed Keppra. * Patient to follow up with Dr. Cummings as outpatient for further management of his seizure disorder. Patient probably will need prolonged, perhaps 24-48 hours EEG for further evaluation of any interictal epileptiform activity. Possible side effects of Vimpat were discussed. * Carotid Doppler showed antegrade flow in the vertebral arteries. Less than 15% stenosis in both ICA. * EEG is borderline abnormal due to minimal background slowing. This may be considered nonspecific abnormality, although mild encephalopathy or medication effect may be considered in differential. No epileptiform activity was seen. * Computed tomography scan of chest abdomen and pelvis is normal. * 2-D echo showed normal left-ventricular size. Borderline concentric LVH. EF is between 60-65%. Left atrium is mildly dilated. No aortic stenosis. EKG shows normal sinus rhythm. * Patient was informed of [place] state law of no driving unless seizure free for 6 months, climbing ladders, operate dangerous machinery or unsupervised swimming. * Neurologically clear for discharge
== END 2020-12-27 13:40 | disposition home or self-care (01) | DRG 101 ==
LOC: SUPCPDRO 10:42 → EC 10:42 → 6NMEDSUR 14:21 → OBSVTOIN 12-26 15:40
PROVIDERS: ADMIT Internal Medicine; ATTEND Internal Medicine
DX: R56.9 Unspecified convulsions (principal); F33.9 Major depressive disorder, recurrent, unspecified; G40.409 Other generalized epilepsy and epileptic syndromes, not intractable, without status epilepticus; E66.9 Obesity, unspecified; E78.5 Hyperlipidemia, unspecified; F12.90 Cannabis use, unspecified, uncomplicated; F31.9 Bipolar disorder, unspecified; F41.1 Generalized anxiety disorder; G89.29 Other chronic pain; I11.0 Hypertensive heart disease with heart failure; I48.91 Unspecified atrial fibrillation; I50.9 Heart failure, unspecified; J32.9 Chronic sinusitis, unspecified; G47.33 Obstructive sleep apnea (adult) (pediatric); M54.5 Low back pain; Z79.82 Long term (current) use of aspirin; Z79.899 Other long term (current) drug therapy; Z82.49 Family history of ischemic heart disease and other diseases of the circulatory system; Z83.3 Family history of diabetes mellitus; Z86.73 Personal history of transient ischemic attack (TIA), and cerebral infarction without residual deficits; Z87.891 Personal history of nicotine dependence; Z91.19 Patient's noncompliance with other medical treatment and regimen; Z79.51 Long term (current) use of inhaled steroids; Z79.02 Long term (current) use of antithrombotics/antiplatelets; N40.0 Benign prostatic hyperplasia without lower urinary tract symptoms; J44.9 Chronic obstructive pulmonary disease, unspecified; H91.90 Unspecified hearing loss, unspecified ear
CPT/HCPCS: 36415; 70450; 71260; 72125; 74177; 80053; 80061; 81003; 83735; 84484; 85025; 85610; 85730; 93005; 93270; 93306; 93880; 94640; 95816; 96361; 96374; 99285

== ENCOUNTER 2022-02-08 14:09 | Emergency (ER) | payer MEDICARE, OTHER ==
[2022-02-08 14:32] VITALS: RESP 16; TEMP 98.2
--- NOTE | 2022-02-08 14:55 | ED ---
General Adult HPI - General Chief complaint: Overdose Stated complaint: Overdose on seizure meds Time Seen by Provider: 02/08/22 14:35 Source: patient, RN notes reviewed Mode of arrival: ambulatory Limitations: no limitations - History of Present Illness Initial comments: 66-year-old male presents emergency Department chief complaint of accidental drug ingestion. Patient states that he took only takes them. When her milligrams twice daily. Patient states took his morning dose states it just got new prescription bile today she started having panic attack. Patient is here with family member which she states that she fills his drug boxes. Patient went to go take his anxiety medication when he opened up the Vimpat. This was not intentional denies any suicidal or homicidal. Patient states that he has not taken a total of 400 mg of the Vimpat today patient has no complaints denies any chest pain palpitation shortness of breath. Chills nausea vomiting. Patient states that he contacted poison control and advised him to come in to be evaluated. - Related Data Home Medications Medication Instructions Recorded Confirmed Aspirin 81 mg PO HS 12/03/13 12/25/20 Clopidogrel [Plavix] 75 mg PO DAILY 12/03/13 12/25/20 Budesonide/Formoterol Fumarate 2 puff INHALATION RT-BID 08/12/15 12/25/20 [Symbicort 160-4.5 Mcg Inhaler] Albuterol Nebulized [Ventolin 2.5 mg INHALATION RT-Q4H PRN 01/25/19 12/25/20 Nebulized] Montelukast [Singulair] 10 mg PO HS 01/25/19 12/25/20 Baclofen [Lioresal] 10 mg PO BID 12/25/20 12/25/20 DULoxetine HCL [Cymbalta] 60 mg PO BID 12/25/20 12/25/20 Omeprazole [PriLOSEC] 20 mg PO AC-[id number] 12/25/20 12/25/20 clonazePAM [KlonoPIN] 0.5 mg PO TID 12/25/20 12/25/20 Previous Rx's Medication Instructions Recorded Atorvastatin [Lipitor] 80 mg PO HS tab 07/10/14 Lacosamide [Vimpat] 50 mg PO BID 3 Days #6 tab 12/27/20 Tamsulosin [Flomax] 0.4 mg PO DAILY #30 cap.er.24h 12/27/20 atenoloL [Tenormin] 50 mg PO BID #120 tab 12/27/20 traMADol HCL [Ultram] 50 mg PO TID 3 Days #12 tab 12/27/20 Allergies Allergy/AdvReac Type Severity Reaction Status Date / Time fentanyl AdvReac Vomiting Verified 02/08/22 14:32 Review of Systems ROS Statement: Those systems with pertinent positive or pertinent negative responses have been documented in the HPI. ROS Other: All systems not noted in ROS Statement are negative. Past Medical History Past Medical History: Asthma, Heart Failure, COPD, CVA/TIA, Hearing Disorder / Deafness, Hyperlipidemia, Hypertension, Seizure Disorder Additional Past Medical History / Comment(s): left side weakness since stroke in 2009, chronic sinusitis, sleep apnea, back pain History of Any Multi-Drug Resistant Organisms: None Reported Past Surgical History: Orthopedic Surgery Additional Past Surgical History / Comment(s): left ankle reconstruction, abd sx to remove fatty tumor Past Anesthesia/Blood Transfusion Reactions: No Reported Reaction Past Psychological History: Anxiety, Depression Smoking Status: Former smoker Past Alcohol Use History: None Reported Past Drug Use History: Marijuana - Past Family History Mother Family Medical History: Coronary Artery Disease (CAD), Diabetes Mellitus Father Family Medical History: Congestive Heart Failure (CHF), Diabetes Mellitus Additional Family Medical History / Comment(s): heart cath with stents. brain tumor. General Exam Limitations: no limitations General appearance: alert, in no apparent distress Head exam: Present: atraumatic, normocephalic, normal inspection ENT exam: Present: normal exam, mucous membranes moist Neck exam: Present: normal inspection. Absent: tenderness, meningismus, lymphadenopathy Respiratory exam: Present: normal lung sounds bilaterally. Absent: respiratory distress, wheezes, rales, rhonchi, stridor Cardiovascular Exam: Present: regular rate, normal rhythm, normal heart sounds. Absent: systolic murmur, diastolic murmur, rubs, gallop, clicks Course Vital Signs 02/08/22 14:30 Temperature 98.2 F Pulse Rate 71 Respiratory 16 Rate Blood Pressure 147/82 O2 Sat by Pulse 97 Oximetry Medical Decision Making - Medical Decision Making 58-year-old presented for accidental drug ingestion. Patient did take a total 400 mg of intact today he is asymptomatic, some doses 600 mg EKG was obtained which showed no acute changes. Patient will be discharged advised to return for any changes symptoms. Disposition Clinical Impression: Accidental drug ingestion Disposition: HOME SELF-CARE Condition: Stable Instructions (If sedation given, give patient instructions): Lacosamide (By mouth) Additional Instructions: Do not take your Vimpat night dose.Please return to the Emergency Department if symptoms worsen or any other concerns. Is patient prescribed a controlled substance at d/c from ED?: No Referrals: Lauren Durbin MD [Primary Care Provider] - 1-2 days Time of Disposition: 14:54
[2022-02-08 15:12] VITALS: BP 154/86; PULSE 68
== END 2022-02-08 15:13 | disposition home or self-care (01) ==
LOC: EC 14:09
DX: T42.6X1A Poisoning by other antiepileptic and sedative-hypnotic drugs, accidental (unintentional), initial encounter (principal); J44.9 Chronic obstructive pulmonary disease, unspecified; I11.0 Hypertensive heart disease with heart failure; I50.9 Heart failure, unspecified; E78.5 Hyperlipidemia, unspecified; Z86.73 Personal history of transient ischemic attack (TIA), and cerebral infarction without residual deficits; Z86.69 Personal history of other diseases of the nervous system and sense organs; Z87.891 Personal history of nicotine dependence; Z88.4 Allergy status to anesthetic agent
CPT/HCPCS: 93005; 99284

== ENCOUNTER 2023-08-26 20:18 | Emergency (ER) | payer MEDICARE, OTHER ==
[2023-08-26 20:37] VITALS: BP 118/73; PULSE 81; TEMP 97.8
--- NOTE | 2023-08-26 21:51 | ED ---
Animal Bite HPI - General Chief Complaint: Animal Bite Stated Complaint: Dog bite Time Seen by Provider: 08/26/23 20:53 Source: patient Mode of arrival: ambulatory Limitations: no limitations - History of Present Illness Initial Comments: 67-year-old male presenting with chief complaint of dog bite. Patient was breaking up a fight between his dogs when he was bit on the left hand. He has some limited range of motion to the thumb, which she states is chronic. Otherwise he has full range of motion of the fingers and wrist. He has a few puncture [place] to the hand. Is not sure when his last tetanus was. - Related Data Home Medications Medication Instructions Recorded Confirmed Aspirin 81 mg PO HS 12/03/13 12/25/20 Clopidogrel [Plavix] 75 mg PO DAILY 12/03/13 12/25/20 Budesonide/Formoterol Fumarate 2 puff INHALATION RT-BID 08/12/15 12/25/20 [Symbicort 160-4.5 Mcg Inhaler] Albuterol Nebulized [Ventolin 2.5 mg INHALATION RT-Q4H PRN 01/25/19 12/25/20 Nebulized] Montelukast [Singulair] 10 mg PO HS 01/25/19 12/25/20 Baclofen [Lioresal] 10 mg PO BID 12/25/20 12/25/20 DULoxetine HCL [Cymbalta] 60 mg PO BID 12/25/20 12/25/20 Omeprazole [PriLOSEC] 20 mg PO AC-BRKFST 12/25/20 12/25/20 clonazePAM [KlonoPIN] 0.5 mg PO TID 12/25/20 12/25/20 Previous Rx's Medication Instructions Recorded Atorvastatin [Lipitor] 80 mg PO HS tab 07/10/14 Lacosamide [Vimpat] 50 mg PO BID 3 Days #6 tab 12/27/20 Tamsulosin [Flomax] 0.4 mg PO DAILY #30 cap.er.24h 12/27/20 atenoloL [Tenormin] 50 mg PO BID #120 tab 12/27/20 traMADol HCL [Ultram] 50 mg PO TID 3 Days #12 tab 12/27/20 Amoxic-Pot Clav 875-125Mg 1 tab PO BID 10 Days #20 tab 08/26/23 [Augmentin 875-125] Allergies Allergy/AdvReac Type Severity Reaction Status Date / Time fentanyl AdvReac Vomiting Verified 08/26/23 20:25 Review of Systems ROS Statement: Those systems with pertinent positive or pertinent negative responses have been documented in the HPI. ROS Other: All systems not noted in ROS Statement are negative. Past Medical History Past Medical History: Asthma, Heart Failure, COPD, CVA/TIA, Hearing Disorder / Deafness, Hyperlipidemia, Hypertension, Seizure Disorder Additional Past Medical History / Comment(s): left side weakness since stroke in 2009, chronic sinusitis, sleep apnea, back pain History of Any Multi-Drug Resistant Organisms: None Reported Past Surgical History: Orthopedic Surgery Additional Past Surgical History / Comment(s): left ankle reconstruction, abd sx to remove fatty tumor Past Anesthesia/Blood Transfusion Reactions: No Reported Reaction Past Psychological History: Anxiety, Depression Smoking Status: Former smoker Past Alcohol Use History: None Reported Past Drug Use History: Marijuana - Past Family History Mother Family Medical History: Coronary Artery Disease (CAD), Diabetes Mellitus Father Family Medical History: Congestive Heart Failure (CHF), Diabetes Mellitus Additional Family Medical History / Comment(s): heart cath with stents. brain tumor. General Exam Limitations: no limitations General appearance: alert, in no apparent distress Head exam: Present: atraumatic, normocephalic Eye exam: Present: normal appearance, EOMI Neck exam: Present: normal inspection Respiratory exam: Absent: respiratory distress Cardiovascular Exam: Present: regular rate Left Hand Wrist exam: Present: tenderness, laceration. Absent: swelling Neurological exam: Present: alert, oriented X3 Psychiatric exam: Present: normal affect, normal mood Expanded Type of lesion: Present: laceration (Multiple puncture wounds to the left hand) Course Vital Signs 08/26/23 08/26/23 20:24 22:31 Temperature 97.8 F Pulse Rate 81 Respiratory 18 16 Rate Blood Pressure 118/73 O2 Sat by Pulse 96 Oximetry Medical Decision Making - Medical Decision Making Was pt. sent in by a medical professional or institution (, PA, RIM FIRE PRIMING TOOL SETTER, urgent care, hospital, or fdc...) When possible be specific @ -No Did you speak to anyone other than the patient for history (EMS, parent, family, police, friend...)? What history was obtained from this source @ -No Did you review nursing and triage notes (agree or disagree)? Why? @ -I reviewed and agree with nursing and triage notes Were old charts reviewed (outside hosp., previous admission, EMS record, old EKG, old radiological studies, urgent care reports/EKG's, fdc records)? Report findings @ -No old charts were reviewed Differential Diagnosis (chest pain, altered mental status, abdominal pain women, abdominal pain men, vaginal bleeding, weakness, fever, dyspnea, syncope, headache, dizziness, GI bleed, back pain, seizure, CVA, palpatations, mental health, musculoskeletal)? @ -Differential Musculoskeletal Muscular strain, contusion, ligament sprain, fracture, arthritis, septic arthritis, bursitis, cellulitis, muscle spasm, nerve compression, DVT, arterial occlusion, herpes zoster, electrolyte abnormality, tumor.... This is not meant to be in all inclusive list EKG interpreted by me (3pts min.). @ -As above X-rays interpreted by me (1pt min.). @ -X-ray shows osseous mineralization appears appropriate. There is abnormal alignment at the third digit metacarpophalangeal joint and the thumb metacarpal phalangeal joint, however this appears likely due to subluxation related to moderate degenerative changes, rather than an acute traumatic injury. There is otherwise no dislocation or fracture seen throughout the hand. Unremarkable soft tissues. No radiopaque foreign bodies seen. CT interpreted by me (1pt min.). @ -None done U/S interpreted by me (1pt. min.). @ -None done What testing was considered but not performed or refused? (CT, X-rays, U/S, labs)? Why? @ -None What meds were considered but not given or refused? Why? @ -None Did you discuss the management of the patient with other professionals (professionals i.e. , PA, RIM FIRE PRIMING TOOL SETTER, lab, RT, psych nurse, social media director, coin machine assembler, teacher, youth officer, continuous pillowcase cutter)? Give summary @ -No Was smoking cessation discussed for >3mins.? @ -No Was critical care preformed (if so, how long)? @ -No Were there social determinants of health that impacted care today? How? (Homelessness, low income, unemployed, alcoholism, drug addiction, transportation, low edu. Level, literacy, decrease access to med. care, [facility], rehab)? @ -No Was there de-escalation of care discussed even if they declined (Discuss DNR or withdrawal of care, Hospice)? DNR status @ -No What co-morbidities impacted this encounter? (DM, HTN, Smoking, COPD, CAD, Cancer, CVA, ARF, Chemo, Hep., AIDS, mental health diagnosis, sleep apnea, morbid obesity)? @ -None Was patient admitted / discharged? Hospital course, mention meds given and route, prescriptions, significant lab abnormalities, going to OR and other pertinent info. @ -67-year-old male presenting for evaluation after dog bite. Occurred this evening. His tetanus was updated today. X-ray shows chronic changes with no evidence of acute fracture or radiopaque foreign body. Patient is educated on wound care. Started on Augmentin. Discharged. Follow-up with PCP. Report back to ER with any new or worsening symptoms. Discussed return parameters and answered all questions. Patient conveyed verbal understanding and agreed to the plan. I discussed this case in detail with my attending Dr. Petit Undiagnosed new problem with uncertain prognosis? @ -No Drug Therapy requiring intensive monitoring for toxicity (Heparin, Nitro, Insulin, Cardizem)? @ -No Were any procedures done? @ -No Diagnosis/symptom? @ -Dog bite Acute, or Chronic, or Acute on Chronic? @ -Acute Uncomplicated (without systemic symptoms) or Complicated (systemic symptoms)? @ -Uncomplicated Side effects of treatment? @ -No Exacerbation, Progression, or Severe Exacerbation? @ -No Poses a threat to life or bodily function? How? (Chest pain, [place], [place], pneumonia, PE, COPD, DKA, ARF, appy, cholecystitis, CVA, Diverticulitis, Homicidal, Suicidal, threat to staff... and all critical care pts) @ -No Disposition Clinical Impression: Dog bite Disposition: HOME SELF-CARE Condition: Good Instructions (If sedation given, give patient instructions): Animal Bite (ED) Additional Instructions: Follow-up with PCP. Report back to ER with any new or worsening symptoms. Take medication as prescribed. Prescriptions: Amoxic-Pot Clav 875-125Mg [Augmentin 875-125] 1 tab PO BID 10 Days #20 tab Is patient prescribed a controlled substance at d/c from ED?: No Referrals: Lauren Durbin MD [Primary Care Provider] - 1-2 days Time of Disposition: 22:57
[2023-08-26] MEDS: HYDROcodone/APAP 7.5-325MG 1 EACH TAB PO ONE (22:27)
[2023-08-26] MEDS: DIPH,PERTUS(ACELL)TETVAC-LF 0.5 ML VIAL IM ONE (22:28)
--- NOTE | 2023-08-26 22:51 | XR ---
EXAMINATION TYPE: XR hand complete LT DATE OF EXAM: 08/26/2023 9:14 PM CLINICAL INDICATION:Male, 67 years old with history of dog bite; H COMPARISON: None TECHNIQUE: 3 views of the left hand. FINDINGS: Osseous mineralization appears appropriate. There is abnormal alignment at the third digit metacarpop halangeal joint and the thumb metacarpophalangeal joint, however this appears likely due to subluxati on related to moderate degenerative changes, rather than an acute traumatic injury; correlate clinica lly. There is otherwise no dislocation or fracture seen throughout the hand. Unremarkable soft tissue s. No radiopaque foreign body is seen. IMPRESSION: As above.
[2023-08-26 23:07] VITALS: RESP 16
== END 2023-08-26 23:53 | disposition home or self-care (01) ==
LOC: EC 20:18
DX: S61.452A Open bite of left hand, initial encounter (principal); F12.90 Cannabis use, unspecified, uncomplicated; Z87.891 Personal history of nicotine dependence; Z88.5 Allergy status to narcotic agent; Z23 Encounter for immunization; W54.0XXA Bitten by dog, initial encounter
CPT/HCPCS: 90471; 90715; 99283

== ENCOUNTER → 2023-10-15 | Outpatient (CLI) | payer MEDICARE, OTHER ==
--- NOTE | 2023-10-15 14:48 | CTL ---
EXAMINATION TYPE: CT Low Dose Lung DATE OF EXAM ORDERED: 10/15/2023 History: Lung cancer screening CT DLP: 110.[address] CTDI: 3.0 mGy Automated exposure control for dose reduction was used. Comparison: CT chest abdomen and pelvis dated 12/25/2020 TECHNIQUE: Low dose computed tomography scan was performed through the chest at 1 mm thick sections a nd reconstructed images in multiple planes at 1 mm and 5 mm thick sections. The exam is limited by br eathing motion FINDINGS: There is a new 4.3 mm nodule in the right middle lobe. There are scattered micronodules. The lungs are clear and there is no abnormal consolidation or interstitial density. There is no mediastinal, hilar or axillary adenopathy. There is no pleural effusion, pleural thickening or pneumothorax. No focal osseous lesions are seen. Limited scans the upper abdomen reveals no gross adenopathy. IMPRESSION: 1. BI-RADS Category 3, probably benign. Six-month follow-up CT is recommended to confirm stability 2. No acute cardiopulmonary disease.
== END | disposition home or self-care (01) ==
LOC: RADCTMAIN 14:15
PROVIDERS: ATTEND Internal Medicine
DX: Z12.2 Encounter for screening for malignant neoplasm of respiratory organs (principal); Z87.891 Personal history of nicotine dependence
CPT/HCPCS: 71271

== ENCOUNTER 2024-05-12 16:26 | Emergency (ER) | payer MEDICARE, OTHER ==
[2024-05-12 16:32] VITALS: RESP 20
--- NOTE | 2024-05-12 17:53 | ED ---
Recheck HPI - General Chief Complaint: Recheck/Abnormal Lab/Rx Stated Complaint: drug test Time Seen by Provider: 05/12/24 16:44 Source: patient, RN notes reviewed Mode of arrival: ambulatory Limitations: no limitations - History of Present Illness Initial Comments: This is a 68-year-old male presenting for urine drug screen. Patient states he is on adult probation and was told to go to the ER for urine drug screen. States he does not require any alcohol testing. MD Complaint: other Onset/Timin -: days(s) Symptoms Since Prior Visit: no new symptoms Associated Symptoms: none - Related Data Home Medications Medication Instructions Recorded Confirmed Aspirin 81 mg PO HS 12/03/13 12/25/20 Clopidogrel [Plavix] 75 mg PO DAILY 12/03/13 12/25/20 Budesonide/Formoterol Fumarate 2 puff INHALATION RT-BID 08/12/15 12/25/20 [Symbicort 160-4.5 Mcg Inhaler] Albuterol Nebulized [Ventolin 2.5 mg INHALATION RT-Q4H PRN 01/25/19 12/25/20 Nebulized] Montelukast [Singulair] 10 mg PO HS 01/25/19 12/25/20 Baclofen [Lioresal] 10 mg PO BID 12/25/20 12/25/20 DULoxetine HCL [Cymbalta] 60 mg PO BID 12/25/20 12/25/20 Omeprazole [PriLOSEC] 20 mg PO AC-BRKFST 12/25/20 12/25/20 clonazePAM [KlonoPIN] 0.5 mg PO TID 12/25/20 12/25/20 Previous Rx's Medication Instructions Recorded Atorvastatin [Lipitor] 80 mg PO HS tab 07/10/14 Lacosamide [Vimpat] 50 mg PO BID 3 Days #6 tab 12/27/20 Tamsulosin [Flomax] 0.4 mg PO DAILY #30 cap.er.24h 12/27/20 atenoloL [Tenormin] 50 mg PO BID #120 tab 12/27/20 traMADol HCL [Ultram] 50 mg PO TID 3 Days #12 tab 12/27/20 Amoxic-Pot Clav 875-125Mg 1 tab PO BID 10 Days #20 tab 08/26/23 [Augmentin 875-125] Allergies Allergy/AdvReac Type Severity Reaction Status Date / Time fentanyl AdvReac Vomiting Verified 08/26/23 20:25 Review of Systems ROS Statement: Those systems with pertinent positive or pertinent negative responses have been documented in the HPI. ROS Other: All systems not noted in ROS Statement are negative. Past Medical History Past Medical History: Asthma, Heart Failure, COPD, CVA/TIA, Hearing Disorder / Deafness, Hyperlipidemia, Hypertension, Seizure Disorder Additional Past Medical History / Comment(s): left side weakness since stroke in 2009, chronic sinusitis, sleep apnea, back pain History of Any Multi-Drug Resistant Organisms: None Reported Past Surgical History: Orthopedic Surgery Additional Past Surgical History / Comment(s): left ankle reconstruction, abd sx to remove fatty tumor Past Anesthesia/Blood Transfusion Reactions: No Reported Reaction Past Psychological History: Anxiety, Depression Smoking Status: Former smoker Past Alcohol Use History: None Reported Past Drug Use History: Marijuana - Past Family History Mother Family Medical History: Coronary Artery Disease (CAD), Diabetes Mellitus Father Family Medical History: Congestive Heart Failure (CHF), Diabetes Mellitus Additional Family Medical History / Comment(s): heart cath with stents. brain tumor. General Exam Limitations: no limitations General appearance: alert, in no apparent distress Head exam: Present: atraumatic, normocephalic, normal inspection Eye exam: Present: normal appearance, PERRL, EOMI. Absent: scleral icterus, conjunctival injection, periorbital swelling ENT exam: Present: normal exam, mucous membranes moist Neck exam: Present: normal inspection. Absent: tenderness, meningismus, lymphadenopathy Respiratory exam: Present: normal lung sounds bilaterally. Absent: respiratory distress, wheezes, rales, rhonchi, stridor Cardiovascular Exam: Present: regular rate, normal rhythm, normal heart sounds. Absent: systolic murmur, diastolic murmur, rubs, gallop, clicks GI/Abdominal exam: Present: soft, normal bowel sounds. Absent: distended, tenderness, guarding, rebound, rigid Extremities exam: Present: normal inspection, full ROM, normal capillary refill. Absent: tenderness, pedal edema, joint swelling, calf tenderness Back exam: Present: normal inspection Neurological exam: Present: alert, oriented X3, CN II-XII intact Psychiatric exam: Present: normal affect, normal mood Skin exam: Present: warm, dry, intact, normal color. Absent: rash Course Vital Signs 05/12/24 16:30 Temperature 97.9 F Pulse Rate 79 Respiratory 20 Rate Blood Pressure 176/77 O2 Sat by Pulse 99 Oximetry Medical Decision Making - Medical Decision Making Was pt. sent in by a medical professional or institution ([employer] Scruggs, TISSUE SPECIALIST, urgent care, hospital, or snf...) When possible be specific @ -[No] Did you speak to anyone other than the patient for history (EMS, parent, family, police, friend...)? What history was obtained from this source @ -[No] Did you review nursing and triage notes (agree or disagree)? Why? @ -[I reviewed and agree with nursing and triage notes] Were old charts reviewed (outside hosp., previous admission, EMS record, old EKG, old radiological studies, urgent care reports/EKG's, snf records)? Report findings @ -[No old charts were reviewed] Differential Diagnosis (chest pain, altered mental status, abdominal pain women, abdominal pain men, vaginal bleeding, weakness, fever, dyspnea, syncope, headache, dizziness, GI bleed, back pain, seizure, CVA, palpatations, mental health, musculoskeletal)? @ -Negative substance use, positive substance use EKG interpreted by me (3pts min.). @ -Not done X-rays interpreted by me (1pt min.). @ -[None done] CT interpreted by me (1pt min.). @ -[None done] U/S interpreted by me (1pt. min.). @ -[None done] What testing was considered but not performed or refused? (CT, X-rays, U/S, labs)? Why? @ -[None] What meds were considered but not given or refused? Why? @ -[None] Did you discuss the management of the patient with other professionals (professionals i.e. [employer] Scruggs, TISSUE SPECIALIST, lab, RT, psych nurse, social sciences research scientist, vending manager, teacher, commissioned defence force officer, pillowcase cutter)? Give summary @ -[No] Was smoking cessation discussed for >3mins.? @ -[No] Was critical care preformed (if so, how long)? @ -[No] Were there social determinants of health that impacted care today? How? (Homelessness, low income, unemployed, alcoholism, drug addiction, transportation, low edu. Level, literacy, decrease access to med. care, correction, rehab)? @ -[No] Was there de-escalation of care discussed even if they declined (Discuss DNR or withdrawal of care, Hospice)? DNR status @ -[No] What co-morbidities impacted this encounter? (DM, HTN, Smoking, COPD, CAD, Cancer, CVA, ARF, Chemo, Hep., AIDS, mental health diagnosis, sleep apnea, morbid obesity)? @ -[None] Was patient admitted / discharged? Hospital course, mention meds given and route, prescriptions, significant lab abnormalities, going to OR and other pertinent info. @ -[hospital course] Undiagnosed new problem with uncertain prognosis? @ -[No] Drug Therapy requiring intensive monitoring for toxicity (Heparin, Nitro, Insulin, Cardizem)? @ -[No] Were any procedures done? @ -[No] Diagnosis/symptom? @ -Urine drug screen Acute, or Chronic, or Acute on Chronic? @ -Acute Uncomplicated (without systemic symptoms) or Complicated (systemic symptoms)? @ -Uncomplicated Side effects of treatment? @ -[No] Exacerbation, Progression, or Severe Exacerbation? @ -[No] Poses a threat to life or bodily function? How? (Chest pain, [place], [place], pneumonia, PE, COPD, DKA, ARF, appy, cholecystitis, CVA, Diverticulitis, Homicidal, Suicidal, threat to staff... and all critical care pts) @ -[No] - Lab Data Lab Results 05/12/24 Range/Units 17:58 Urine Opiates Screen Not Detected (NotDetected) Ur Oxycodone Screen Not Detected (NotDetected) Urine Methadone Screen Not Detected (NotDetected) Ur Barbiturates Screen Not Detected (NotDetected) U Tricyclic Antidepress Not Detected (NotDetected) Ur Phencyclidine Scrn Not Detected (NotDetected) Ur Amphetamines Screen Not Detected (NotDetected) U Methamphetamines Scrn Not Detected (NotDetected) U Benzodiazepines Scrn Not Detected (NotDetected) Urine Cocaine Screen Not Detected (NotDetected) U Marijuana (THC) Screen Detected H (NotDetected) Disposition Clinical Impression: Positive urine drug screen Disposition: HOME SELF-CARE Condition: Good Is patient prescribed a controlled substance at d/c from ED?: No Referrals: Ramakrishna,Emad, MD [Primary Care Provider] - 1-2 days Time of Disposition: 18:41
[2024-05-12 18:35] LABS: Amphetamine Screen,Urine Not Detected (NotDetected); Barbiturate Screen,Urine Not Detected (NotDetected); Benzodiazepines Screen,Urine Not Detected (NotDetected); Cocaine Screen,Urine Not Detected (NotDetected); Methadone Screen, Urine Not Detected (NotDetected); Opiate Screen,Urine Not Detected (NotDetected); Oxycodone Screen, Urine Not Detected (NotDetected); Phencyclidine Screen,Urine Not Detected (NotDetected); Tricyclic Antidepressant,Urine Not Detected (NotDetected); Urn Cannabinoid Scrn Detected (NotDetected)
[2024-05-12 18:55] VITALS: BP 154/81; PULSE 78; TEMP 98
== END 2024-05-12 18:55 | disposition home or self-care (01) ==
LOC: EC 16:26
DX: R82.5 Elevated urine levels of drugs, medicaments and biological substances (principal); Z88.5 Allergy status to narcotic agent; Z87.891 Personal history of nicotine dependence; Z86.73 Personal history of transient ischemic attack (TIA), and cerebral infarction without residual deficits
CPT/HCPCS: 80306; 99282

== ENCOUNTER 2024-08-16 11:24 | Emergency (ER) | payer MEDICARE, OTHER ==
--- NOTE | 2024-08-16 12:04 | ED ---
Overdose HPI - General Source: patient, police, RN notes reviewed Mode of arrival: EMS Limitations: no limitations <Najma Boateng - Last Filed: 08/16/24 15:20> <Anahi Roque - Last Filed: 08/16/24 23:49> - General Chief Complaint: Overdose Stated Complaint: overdose Time Seen by Provider: 08/16/24 11:30 - History of Present Illness Initial Comments: This is a 68-year-old male who presents to the emergency department for a suspected overdose. Patient was going to court today for a domestic violence issue. States that this stressed him out and he accidentally took his daily medication twice. Patient is unsure what this consisted of. Believes that he took too much of his duloxetine, Klonopin, and baclofen. Unsure of the dose. However, when specifying he then states that he took 3 times his normal amount of Klonopin. Patient petitioned by [employer]. States that he currently feels fine and has no complaints. Denies doing this in an attempt to harm himself. (Najma Boateng) - Related Data Home Medications Medication Instructions Recorded Confirmed Clopidogrel [Plavix] 75 mg PO DAILY 12/03/13 08/16/24 Montelukast [Singulair] 10 mg PO HS 01/25/19 08/16/24 DULoxetine HCL [Cymbalta] 60 mg PO BID 12/25/20 08/16/24 Albuterol Sulfate [Albuterol 1 puff INHALATION RT-Q4H PRN 08/16/24 08/16/24 Sulfate Hfa] Aspirin EC [Ecotrin Low Dose] 81 mg PO HS 08/16/24 08/16/24 Donepezil [Aricept] 10 mg PO HS 08/16/24 08/16/24 atenoloL [Tenormin] 50 mg PO BID 08/16/24 08/16/24 busPIRone HCL [Buspirone HCl] 15 mg PO TID 08/16/24 08/16/24 clonazePAM [KlonoPIN ODT] 0.25 mg PO TID 08/16/24 08/16/24 traZODone HCL [Desyrel] 50 mg PO HS PRN 08/16/24 08/16/24 Previous Rx's Medication Instructions Recorded Atorvastatin [Lipitor] 80 mg PO HS tab 07/10/14 Tamsulosin [Flomax] 0.4 mg PO DAILY #30 cap.er.24h 12/27/20 Allergies Allergy/AdvReac Type Severity Reaction Status Date / Time fentanyl AdvReac Vomiting Verified 08/16/24 13:05 Review of Systems ROS Other: All systems not noted in ROS Statement are negative. <Najma Boateng - Last Filed: 08/16/24 15:20> ROS Other: All systems not noted in ROS Statement are negative. <Anahi Roque - Last Filed: 08/16/24 23:49> ROS Statement: Those systems with pertinent positive or pertinent negative responses have been documented in the HPI. Past Medical History Past Medical History: Asthma, Heart Failure, COPD, CVA/TIA, Hearing Disorder / Deafness, Hyperlipidemia, Hypertension, Seizure Disorder Additional Past Medical History / Comment(s): left side weakness since stroke in 2009, chronic sinusitis, sleep apnea, back pain History of Any Multi-Drug Resistant Organisms: None Reported Past Surgical History: Orthopedic Surgery Additional Past Surgical History / Comment(s): left ankle reconstruction, abd sx to remove fatty tumor Past Anesthesia/Blood Transfusion Reactions: No Reported Reaction Past Psychological History: Anxiety, Depression Smoking Status: Former smoker Past Alcohol Use History: None Reported Past Drug Use History: Marijuana - Past Family History Mother Family Medical History: Coronary Artery Disease (CAD), Diabetes Mellitus Father Family Medical History: Congestive Heart Failure (CHF), Diabetes Mellitus Additional Family Medical History / Comment(s): heart cath with stents. brain tumor. <Najma Boateng - Last Filed: 08/16/24 15:20> General Exam General appearance: alert, in no apparent distress Head exam: Present: atraumatic, normocephalic, normal inspection Respiratory exam: Present: normal lung sounds bilaterally. Absent: respiratory distress, wheezes, rales, rhonchi, stridor Cardiovascular Exam: Present: regular rate, normal rhythm GI/Abdominal exam: Present: soft, normal bowel sounds. Absent: distended, t enderness, guarding, rebound, rigid Neurological exam: Present: alert, oriented X3, CN II-XII intact Psychiatric exam: Present: normal affect, normal mood Skin exam: Present: warm, dry, intact, normal color. Absent: rash <Najma Boateng - Last Filed: 08/16/24 15:20> Course Vital Signs 08/16/24 08/16/24 08/16/24 11:58 14:38 18:00 Temperature 98.8 F 98.4 F Pulse Rate 66 72 78 Respiratory 18 16 16 Rate Blood Pressure 107/70 112/69 110/78 O2 Sat by Pulse 96 96 98 Oximetry Medical Decision Making - Lab Data Result diagrams: 08/16/24 12:21 08/16/24 12:21 <Najma Boateng - Last Filed: 08/16/24 15:20> - Lab Data Result diagrams: 08/16/24 12:21 08/16/24 12:21 <Anahi Roque - Last Filed: 08/16/24 23:49> - Medical Decision Making This is a 68-year-old male who presents to the emergency department for an overdose. Was pt. sent in by a medical professional or institution? @ -No Did you speak to anyone other than the patient for history? @ -[employer] reiterated the information from the patient. Did you review nursing and triage notes? @ -Yes, and I agree, it is accurate with regards to the patient's symptoms. Were old charts reviewed? @ -No Differential Diagnosis? @ -Overdose, alcohol intoxication, metabolic issue, CVA/TIA, this is not meant to be an all-inclusive list. EKG interpreted by me (3pts min.)? @ -EKG interpreted by me demonstrating the following: Sinus rhythm. Ventricular rate 62 bpm, ND interval 171 ms, QRS duration 100 ms, QTc 394 ms. X-rays interpreted by me (1pt min.)? @ -Not obtained CT interpreted by me (1pt min.)? @ -Not obtained U/S interpreted by me (1pt. min.)? @ -Not obtained What testing was considered but not performed? (CT, X-rays, U/S, labs)? Why? @ -None What meds were considered but not given? Why? @ -None Did you discuss the management of the patient with other professionals? @ -Yes, Primo with EPS, who advised that the patient could be discharged home. Did you reconcile home meds? @ -No Was smoking cessation discussed for >3mins.? @ -No Was critical care preformed (if so, how long)? @ -No Were there social determinants of health that impacted care today? How? (Homelessness, low income, unemployed, alcoholism, drug addiction, transportation, low edu. Level, literacy, decrease access to med. care, half-way, rehab)? @ -No Was there de-escalation of care discussed even if they declined? (Discuss DNR or withdrawal of care, Hospice)? @ -No What co-morbidities impacted this encounter? (DM, HTN, Smoking, COPD, CAD, Cancer, CVA, Hep., AIDS, mental health diagnosis, sleep apnea, morbid obesity)? @ -None Was patient admitted / discharged? @ -Lab work that was initially obtained was unremarkable. UDS positive for benzodiazepines and marijuana. Alcohol level negative. 1 L of IV fluids admin istered. EPS evaluated the patient and advised that he could be discharged home. He only took the medication due to stress related to going to court and him likely having to go to senior care due to a parole violation. He was not doing this in an attempt to harm himself. When nursing staff was able to speak with poison control they advised concern for anticholinergic effect from taking too much of the muscle relaxants. However, we did advise that he likely only took 20 mg of baclofen. Regardless, they requested further workup with a creatinine kinase, VBG, and lactic acid as well as additional monitoring for another few hours. These labs were then drawn. Case was signed out to Anahi Roque PA-C, at shift completion pending laboratory results and further monitoring. Undiagnosed new problem with uncertain prognosis? @ -None Drug Therapy requiring intensive monitoring for toxicity (Heparin, Nitro, Insulin, Cardizem)? @ -None Were any procedures done? @ -None (Najma Boateng) It was advised that the patient be monitored for 6 hours in the emergency department. He did not develop any further symptoms at this time. Laboratory studies were unremarkable including lactic acid, creatinine kinase, VBG. The patient will be discharged home. He is understanding agreeable with this plan. Patient stable at time of discharge. Case discussed with Dr. Osman. (Anahi Mota) - Lab Data Lab Results 08/16/24 08/16/24 08/16/24 Range/Units 12:21 12:21 12:21 WBC 7.0 (3.8-10.6) k/uL RBC 4.99 (4.30-5.90) m/uL Hgb 14.4 (13.0-17.5) gm/dL Hct 42.7 (39.0-53.0) % MCV 85.6 (80.0-100.0) fL MCH 28.9 (25.0-35.0) pg MCHC 33.8 (31.0-37.0) g/dL RDW 14.8 (11.5-15.5) % Plt Count 231 (150-450) k/uL MPV 7.8 Neutrophils % 70 % Lymphocytes % 18 % Monocytes % 7 % Eosinophils % 3 % Basophils % 1 % Neutrophils # 4.9 (1.3-7.7) k/uL Lymphocytes # 1.3 (1.0-4.8) k/uL Monocytes # 0.5 (0-1.0) k/uL Eosinophils # 0.2 (0-0.7) k/uL Basophils # 0.0 (0-0.2) k/uL VBG pH (7.31-7.41) VBG pCO2 (37-51) mmHg VBG HCO3 (24-28) mmol/L Sodium 138 (137-145) mmol/L Potassium 4.3 (3.5-5.1) mmol/L Chloride 105 (98-107) mmol/L Carbon Dioxide 28 (22-30) mmol/L Anion Gap 5 mmol/L BUN 11 (9-20) mg/dL Creatinine 0.75 (0.66-1.25) mg/dL Est GFR (CKD-EPI)AfAm >90 (>60 ml/min/1.73 sqM) Est GFR (CKD-EPI)NonAf >90 (>60 ml/min/1.73 sqM) Glucose 103 H (74-99) mg/dL Plasma Lactic Acid Keron (0.7-2.0) mmol/L Calcium 9.7 (8.4-10.2) mg/dL Total Bilirubin 0.7 (0.2-1.3) mg/dL AST 22 (17-59) U/L ALT 20 (4-49) U/L Alkaline Phosphatase 83 (38-126) U/L Creatine Kinase (55-170) U/L Total Protein 7.0 (6.3-8.2) g/dL Albumin 4.2 (3.5-5.0) g/dL Urine Color Colorless Urine Appearance Clear (Clear) Urine pH 6.0 (5.0-8.0) Ur Specific [place] 1.003 (1.001-1.035) Urine Protein Negative (Negative) Urine Glucose (UA) Negative (Negative) Urine Ketones Negative (Negative) Urine Blood Negative (Negative) Urine Nitrite Negative (Negative) Urine Bilirubin Negative (Negative) Urine Urobilinogen <2.0 (<2.0) mg/dL Ur Leukocyte Esterase Negative (Negative) Salicylates <1.0 mg/dL Urine Opiates Screen Not Detected (NotDetected) Ur Oxycodone Screen Not Detected (NotDetected) Urine Methadone Screen Not Detected (NotDetected) Acetaminophen <10.0 ug/mL Ur Barbiturates Screen Not Detected (NotDetected) U Tricyclic Antidepress Not Detected (NotDetected) Ur Phencyclidine Scrn Not Detected (NotDetected) Ur Amphetamines Screen Not Detected (NotDetected) U Methamphetamines Scrn Not Detected (NotDetected) U Benzodiazepines Scrn Detected H (NotDetected) Urine Cocaine Screen Not Detected (NotDetected) U Marijuana (THC) Screen Detected H (NotDetected) Serum Alcohol <10 mg/dL 08/16/24 08/16/24 08/16/24 Range/Units 15:15 15:15 15:15 WBC (3.8-10.6) k/uL RBC (4.30-5.90) m/uL Hgb (13.0-17.5) gm/dL Hct (39.0-53.0) % MCV (80.0-100.0) fL MCH (25.0-35.0) pg MCHC (31.0-37.0) g/dL RDW (11.5-15.5) % Plt Count (150-450) k/uL MPV Neutrophils % % Lymphocytes % % Monocytes % % Eosinophils % % Basophils % % Neutrophils # (1.3-7.7) k/uL Lymphocytes # (1.0-4.8) k/uL Monocytes # (0-1.0) k/uL Eosinophils # (0-0.7) k/uL Basophils # (0-0.2) k/uL VBG pH 7.39 (7.31-7.41) VBG pCO2 46 (37-51) mmHg VBG HCO3 28 (24-28) mmol/L Sodium (137-145) mmol/L Potassium (3.5-5.1) mmol/L Chloride (98-107) mmol/L Carbon Dioxide (22-30) mmol/L Anion Gap mmol/L BUN (9-20) mg/dL Creatinine (0.66-1.25) mg/dL Est GFR (CKD-EPI)AfAm (>60 ml/min/1.73 sqM) Est GFR (CKD-EPI)NonAf (>60 ml/min/1.73 sqM) Glucose (74-99) mg/dL Plasma Lactic Acid Keron 1.5 (0.7-2.0) mmol/L Calcium (8.4-10.2) mg/dL Total Bilirubin (0.2-1.3) mg/dL AST (17-59) U/L ALT (4-49) U/L Alkaline Phosphatase (38-126) U/L Creatine Kinase 105 (55-170) U/L Total Protein (6.3-8.2) g/dL Albumin (3.5-5.0) g/dL Urine Color Urine Appearance (Clear) Urine pH (5.0-8.0) Ur Specific [place] (1.001-1.035) Urine Protein (Negative) Urine Glucose (UA) (Negative) Urine Ketones (Negative) Urine Blood (Negative) Urine Nitrite (Negative) Urine Bilirubin (Negative) Urine Urobilinogen (<2.0) mg/dL Ur Leukocyte Esterase (Negative) Salicylates mg/dL Urine Opiates Screen (NotDetected) Ur Oxycodone Screen (NotDetected) Urine Methadone Screen (NotDetected) Acetaminophen ug/mL Ur Barbiturates Screen (NotDetected) U Tricyclic Antidepress (NotDetected) Ur Phencyclidine Scrn (NotDetected) Ur Amphetamines Screen (NotDetected) U Methamphetamines Scrn (NotDetected) U Benzodiazepines Scrn (NotDetected) Urine Cocaine Screen (NotDetected) U Marijuana (THC) Screen (NotDetected) Serum Alcohol mg/dL Disposition <Najma Boateng - Last Filed: 08/16/24 15:20> Is patient prescribed a controlled substance at d/c from ED?: No <Anahi Roque - Last Filed: 08/16/24 23:49> Clinical Impression: Accidental medication error Disposition: HOME SELF-CARE Condition: Stable Instructions (If sedation given, give patient instructions): Adult Overdose (ED) Additional Instructions: Please follow up with your primary care provider. Return to the emergency department for new or worsening symptoms. Referrals: Lauren Durbin MD [Primary Care Provider] - 1-2 days
[2024-08-16] MEDS: SODIUM CHLORIDE 0.9% 1,000 ML IV STA (12:23)
[2024-08-16 12:28] LABS: Appearance,Urine Clear (Clear); Bilirubin,Urine Negative (Negative); Blood,Urine Negative (Negative); Color,Urine Colorless; Glucose,Urine (UA) Negative (Negative); Ketones,Urine Negative (Negative); Leukocyte Esterase,Urine Negative (Negative); Nitrite,Urine Negative (Negative); Protein,Urine Negative (Negative); Specific Gravity,Urine 1.003 (1.001-1.035); Urobilinogen,Urine <2.0 mg/dL (<2.0)
[2024-08-16 12:37] LABS: ALT 20 U/L (4-49); AST 22 U/L (17-59); Acetaminophen <10.0 ug/mL; African American GFR (CKD) >90 (>60 ml/min/1.73 sqM); Albumin 4.2 g/dL (3.5-5.0); Alcohol <10 mg/dL; Alkaline Phosphatase 83 U/L (38-126); Anion Gap 5 mmol/L; Blood Urea Nitrogen 11 mg/dL (9-20); Calcium 9.7 mg/dL (8.4-10.2); Carbon Dioxide 28 mmol/L (22-30); Chloride 105 mmol/L (98-107); Glucose 103 mg/dL (74-99); Non-African American GFR(CKD) >90 (>60 ml/min/1.73 sqM); Potassium 4.3 mmol/L (3.5-5.1); Salicylate <1.0 mg/dL; Sodium 138 mmol/L (137-145); Total Bilirubin 0.7 mg/dL (0.2-1.3)
[2024-08-16 12:56] LABS: Amphetamine Screen,Urine Not Detected (NotDetected); Barbiturate Screen,Urine Not Detected (NotDetected); Benzodiazepines Screen,Urine Detected (NotDetected); Cocaine Screen,Urine Not Detected (NotDetected); Methadone Screen, Urine Not Detected (NotDetected); Opiate Screen,Urine Not Detected (NotDetected); Oxycodone Screen, Urine Not Detected (NotDetected); Phencyclidine Screen,Urine Not Detected (NotDetected); Tricyclic Antidepressant,Urine Not Detected (NotDetected); Urn Cannabinoid Scrn Detected (NotDetected)
[2024-08-16 13:21] LABS: Basophils % (A) 1 %; Eosinophils # (A) 0.2 k/uL (0-0.7); Eosinophils % (A) 3 %; HCT 42.7 % (39.0-53.0); HGB 14.4 gm/dL (13.0-17.5); Lymphocytes # (A) 1.3 k/uL (1.0-4.8); Lymphocytes % (A) 18 %; MCH 28.9 pg (25.0-35.0); MCHC 33.8 g/dL (31.0-37.0); MCV 85.6 fL (80.0-100.0); Mean Platelet Volume 7.8; Monocytes # (A) 0.5 k/uL (0-1.0); Monocytes % (A) 7 %; Neutrophils # (A) 4.9 k/uL (1.3-7.7); Neutrophils % (A) 70 %; Platelet Count 231 k/uL (150-450); RBC 4.99 m/uL (4.30-5.90); RDW 14.8 % (11.5-15.5)
[2024-08-16 14:42] VITALS: RESP 16
[2024-08-16 15:23] LABS: VBG PH 7.39 (7.31-7.41)
[2024-08-16 18:01] VITALS: BP 110/78; PULSE 78; TEMP 98.4
== END 2024-08-16 18:08 | disposition home or self-care (01) ==
LOC: EC 11:24
DX: T42.4X1A Poisoning by benzodiazepines, accidental (unintentional), initial encounter (principal); T42.8X1A Poisoning by antiparkinsonism drugs and other central muscle-tone depressants, accidental (unintentional), initial encounter; Z88.5 Allergy status to narcotic agent; Z87.891 Personal history of nicotine dependence; Z86.73 Personal history of transient ischemic attack (TIA), and cerebral infarction without residual deficits
CPT/HCPCS: 36415; 93005; 80053; 82550; 82803; 83605; 85025; 81003; 80306; 80143; 80179; 99284; 96360; G0480; 80320